=== PATIENT | male | born 1955 | race Caucasian/White ===

== ENCOUNTER 2019-11-28 21:53 | Emergency (ER) | payer MEDICARE, MEDICAID, SELFPAY ==
[2019-11-28 21:55] VITALS: BP 148/93; PULSE 81; RESP 16; TEMP 37.7; O2SAT 97; BMI 30.9
--- NOTE | 2019-11-28 23:02 | ECG_ITS ---
Test Reason : THROAT PAIN Blood Pressure : / mmHG Vent. Rate : 070 BPM Atrial Rate : 070 BPM P-R Int : 212 ms QRS Dur : 106 ms QT Int : 420 ms P-R-T Axes : 052 -03 044 degrees QTc Int : 453 ms Sinus rhythm with 1st degree A-V block with occasional Premature ventricular complexes Nonspecific ST abnormality Inferior leads Abnormal ECG When compared with ECG of 24-SEP-2017 13:38, Premature ventricular complexes are now Present Nonspecific ST abnormality Inferior leads is new Referred By: Sarah Brown Electronically Signed By:MONSE LOOMIS MD
--- NOTE | 2019-11-28 23:02 | XR_ITS ---
EXAMINATION: XR CHEST CLINICAL INFORMATION: Esophageal foreign body. Chest pain. COMPARISON: 09/24/2017 TECHNIQUE: 2 views of the chest were obtained. FINDINGS: The lungs are well expanded. There is no focal consolidation, edema, or effusion. No pneumothorax. The cardiomediastinal silhouette is within normal limits. No acute osseous abnormality. Mild degenerative changes in the spine. IMPRESSION: No acute pulmonary finding.
--- NOTE | 2019-11-28 23:10 | ED_ITS ---
HPI - Skin/Abscess/Foreign Bdy General Chief complaint: Skin/Abscess/Foreign Body Stated complaint: FB IN THROAT Time Seen by Provider: 11/28/19 23:02 Source: patient Mode of arrival: ambulatory Limitations: no limitations History of Present Illness HPI narrative: 64-year-old male presents with suspected food impaction in the Esophagus. He was eating a salad around 5:00 p.m., tried to swallow a carrot feels like the carrot got stuck in the lower portion of his esophagus. He has not been able to drink anything or swallow his secretions since that event. Has a history of esophageal food impactions as a child. does not have a history of esophageal dilation. He does report some chest pain which he believes is from the carrot that is stuck. This time he is able to speak in full sentences, denies palpitations, shortness of breath, wheezing, stridor, abdominal pain and distention, dysuria, hematuria, and edema. MD complaint: other ( Esophageal foreign body) Onset (ago): hour(s) ( 5:00 p.m. today) Tetanus up to date: unsure Location: generalized ( esophagus) Severity: moderate Severity scale (1-10): 7 Quality: aching Pain Consistency: constant Relieving factors: none Associated symptoms: denies other symptoms Treatments prior to arrival: none Related Data Home Medications Medication Instructions Recorded Confirmed pregabalin 1 - 2 cap PO BID 11/29/19 11/29/19 trazodone 1 tab PO BEDTIME 11/29/19 11/29/19 Allergies Allergy/AdvReac Type Severity Reaction Status Date / Time Penicillins [PENICILLINS] Allergy Unknown HIVES Unverified 11/04/19 14:40 fluoxetine [From PROZAC] AdvReac Unknown PT Unverified 11/04/19 14:40 REPORTED IT MADE ME SPEED UP Review of Systems Review of Systems: Constitutional: No Weight loss, No Fever, No Chills, No Night Sweats, No Fatigue, No Malaise ENT/Mouth: positive difficulty swallowing, esophageal pain, No Hearing loss, No Ear Pain, No Nasal Congestion, No Sinus Pain, No Hoarseness, No sore throat, No Rhinorrhea, Eyes: No Eye Pain, No Swelling, No Redness, No Foreign Body, No Discharge, No Vision Changes Cardiovascular: positive Chest Pain, No SOB, No Dyspnea on Exertion, No Orthopnea, No Edema, No Palpitations Respiratory: No Cough, No Sputum, No Wheezing, No Smoke Exposure, No Dyspnea Gastrointestinal: No Nausea, No Vomiting, No Diarrhea, No Constipation, No abdominal Pain, No Hematochezia, No Melena Genitourinary: no irregular bleeding, No Dysuria, No Urinary Frequency, No Hematuria, No Urinary Incontinence, No Urgency, No Flank Pain, No Urinary Flow Changes, No Hesitancy Musculoskeletal: No joint pain, No Myalgias, No Joint Swelling Skin: No Skin Lesions, No rash Neuro: No Weakness, No Numbness, No Paresthesias, No Loss of Consciousness, No D izziness, No Headache Psych: No Anxiety/Panic, No Depression, No SI/HI/AH/VH, No Social Issues, Hem e/Lymph: No Bruising, No Bleeding,No Lymphadenopathy Endocrine: No Polyuria, No Polydipsia, No Temperature Intolerance PMFSH Past Medical History Attestation statement: The following information was validated with the patient. Medical History Back pain Herniated intervertebral disc of lumbar spine Social History Social History Smoking Status: Current every day smoker Smoked in Last 30 Days: No Use of substances other than those prescribed or required for medical reasons: No Advance Directives: No Advance Directives Information Provided: No Physical Exam Vital Signs: Vital Signs: Vital Signs Temp Pulse Resp BP Pulse Ox 11/29/19 01:12 70 18 151/85 H 96 11/29/19 00:00 18 100 11/28/19 21:55 100 F 81 16 148/93 H 97 Body Mass Index 30.9 Appearance: Alert. Oriented X3. No acute distress. Eyes: Pupils equal, round and reactive to light. ENT: Pharynx normal. Neck: Normal inspection. Neck supple. CVS: Normal heart rate and rhythm. Pulses normal. Respiratory: No respiratory distress. Breath sounds normal. Abdomen: Soft and nontender. Skin: Skin warm and dry. Normal skin color. Normal skin turgor. Extremities: No lower extremity edema. No lower extremity edema. Neuro: Oriented X 3. No motor deficit. No sensory deficit. Course Course Course Narrative: patient presents with suspected foreign body, we will order chest x-ray, EKG, labs. Lung sounds are clear, there is no stridor noted to the trachea. Patient is unable to past secretions, we will give glucagon and some IV fluids. Approximately 40 minutes after glucagon, patient still unable to past secretions, states that he still feels the foreign body pressure in the bottom portion of his esophagus. We will call out to GI. Reevaluation(s) Reevaluation #1: Dr. Bunch at bedside, plan of care is to take patient to the OR for esophageal disimpaction Foreign body removal. Time: 01:03 Consultations Consultation #1: Milly Bunch Time: 00:12 MDM - Skin/Abscess/Foreign Bdy MDM Narrative Medical decision making narrative: Esophageal foreign body , esophageal stricture, Schatzki's ring Medical Records Attestation: I reviewed the patient's medical records. Lab Data Attestation: I reviewed the patient's lab results. Result diagrams: 11/28/19 23:31 11/28/19 23:31 Labs: Lab Results 11/28/19 11/28/19 11/28/19 Range/Units 23:31 23:31 23:31 WBC 10.0 (4.8-10.8) X10*3/uL RBC 4.78 (4.60-5.80) X10*6/uL Hgb 14.3 (14.0-18.0) g/dl Hct 42.6 (42-52) % MCV 89.1 (80-98) fL MCH 29.9 (27.0-33.0) pg MCHC 33.6 (31.0-36.0) g/dl RDW 13.5 (11.0-16.0) % Plt Count 243 (160-400) X10*3/uL MPV 9.8 (9.4-12.4) fL Immature Gran % (Auto) 0.4 (0.0-0.4) % Neut % (Auto) 48.0 (45-73) % Lymph % (Auto) 35.8 (20-40) % [place] % (Auto) 9.2 (2-11) % Eos % (Auto) 5.9 H (0-4) % Baso % (Auto) 0.7 (0-2) % Lymph # (Auto) 3.6 (1.2-4.9) X10*3/uL [place] # (Auto) 0.9 (0.1-1.2) X10*3/uL Eos # (Auto) 0.6 H (0.0-0.4) X10*3/uL Baso # (Auto) 0.1 (0.0-0.2) X10*3/uL Abs Immat Gran (auto) 0.04 H (0.00-0.03) X10*3/uL Absolute Neuts (auto) 4.8 (2.0-8.3) X10*3/uL Absolute Nucleated RBC 0.000 (0.0-0.012) X10*3/uL Nucleated RBC % (auto) 0.0 (0.0-0.2) /100WBC Sodium 141 (135-145) mmol/L Potassium 4.0 (3.3-5.1) mmol/l Chloride 108 (96-108) mmol/L Carbon Dioxide 26 (22-29) mmol/L Anion Gap 11 L (12-20) BUN 23 H (9-16) mg/dL Creatinine 1.08 (0.5-1.4) mg/dL Estim Creat Clear Calc 89.6 Estimated GFR > 60 Random Glucose 98 (60-115) mg/dL Calcium 9.0 (8.4-10.2) mg/dL Troponin I High Sens < 3.5 (<3.5-35.0) ng/L Imaging Data Chest x-ray: Attestation: I personally reviewed and interpreted this imaging study as follows: Radiologist's impression: EXAMINATION: XR CHEST CLINICAL INFORMATION: Esophageal foreign body. Chest pain. COMPARISON: 09/24/2017 TECHNIQUE: 2 views of the chest were obtained. FINDINGS: The lungs are well expanded. There is no focal consolidation, edema, or effusion. No pneumothorax. The cardiomediastinal silhouette is within normal limits. No acute osseous abnormality. Mild degenerative changes in the spine. IMPRESSION: No acute pulmonary finding. ECG Data Attestation: I personally reviewed and interpreted this ECG as follows: ECG interpretation date: 11/28/19 ECG interpretation time: 23:20 Prior ECG tracings: available for review Interpretation: Vent. Rate : 070 BPM Atrial Rate : 070 BPM P-R Int : 212 ms QRS Dur : 106 ms QT Int : 420 ms P-R-T Axes : 052 -03 044 degrees QTc Int : 453 ms Sinus rhythm with 1st degree A-V block with occasional Premature ventricular complexes Otherwise normal ECG When compared with ECG of 24-SEP-2017 13:38, Premature ventricular complexes are now Present Critical Care Time Critical Care Time Critical Care Time: Yes Total Critical Care Time: 35 Attestation: I have personally provided critical care time exclusive of time spent on s eparately billable procedures. Time includes review of laboratory data, radiology results, discussion with consultants, and monitoring for potential decompensation. Interventions were performed as documented. Discharge Plan Discharge Clinical Impression: Esophageal foreign body Patient Disposition: Conversion Disposition Prescriptions: No Action trazodone 50 mg tablet 1 tab PO BEDTIME RF: 0 pregabalin 150 mg capsule 1 - 2 cap PO BID RF: 0
[2019-11-28] MEDS: 0.9 % Sodium Chloride 1,000 ML 999 ML IVCONT (23:32)
[2019-11-28 23:40] LABS: Basophils Absolute Auto 0.1 X10*3/uL (0.0-0.2); Basophils Percent Auto 0.7 % (0-2); Eosinophils Absolute Auto 0.6 X10*3/uL (0.0-0.4); Eosinophils Percent Auto 5.9 % (0-4); Hematocrit 42.6 % (42-52); Hemoglobin 14.3 g/dl (14.0-18.0); Imm Gran Abs Auto 0.04 X10*3/uL (0.00-0.03); Imm Gran Pct Auto 0.4 % (0.0-0.4); Lymphocytes Absolute Auto 3.6 X10*3/uL (1.2-4.9); Lymphocytes Percent Auto 35.8 % (20-40); MANUAL DIFF FLAG NO; Mean Corpuscular HGB Conc 33.6 g/dl (31.0-36.0); Mean Corpuscular Hemoglobin 29.9 pg (27.0-33.0); Mean Corpuscular Volume 89.1 fL (80-98); Mean Platelet Volume 9.8 fL (9.4-12.4); Monocytes Absolute Auto 0.9 X10*3/uL (0.1-1.2); Monocytes Percent Auto 9.2 % (2-11); Neutrophils Absolute Auto 4.8 X10*3/uL (2.0-8.3); Platelet Count 243 X10*3/uL (160-400); Red Blood Count 4.78 X10*6/uL (4.60-5.80); Red Cell Distribution Width 13.5 % (11.0-16.0)
[2019-11-29] VITALS (7 sets, daily range): BP systolic 121–151; BP diastolic 85–96; PULSE 65–73; RESP 16–18; TEMP 36.6–36.8; O2SAT 93–100
[2019-11-29 00:07] LABS: Anion Gap 11 (12-20); Blood Urea Nitrogen 23 mg/dL (9-16); Carbon Dioxide 26 mmol/L (22-29); Chloride 108 mmol/L (96-108); Creatinine Clr Calc Pharmacy 89.6; Estimated Glomerular Filt Rate > 60; Glucose Random 98 mg/dL (60-115); Sodium 141 mmol/L (135-145)
[2019-11-29 00:12] LABS: Troponin-I High Sensitivity < 3.5 ng/L (<3.5-35.0)
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
--- NOTE | 2019-11-29 01:34 | PC.NURSE ---
ambulated to bathroom without difficulty.
--- NOTE | 2019-11-29 01:44 | MHC.SHP ---
Pre-Procedural Eval Section B Chief Complaint: FB IN THROAT Allergies: Allergies Allergy/AdvReac Type Severity Reaction Status Date / Time Penicillins [PENICILLINS] Allergy Unknown HIVES Unverified 11/04/19 14:40 fluoxetine [From PROZAC] AdvReac Unknown PT Unverified 11/04/19 14:40 REPORTED IT MADE ME SPEED UP Plan Diagnosis/Plan: Unchanged Patient has been examined and remains a candidate for the planned procedure Will proceed with EGD.
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
[2019-11-29] MEDS: Lactated Ringers 1,000 ML 999 ML IVCONT (02:08)
--- NOTE | 2019-11-29 02:53 | PM.PROC ---
Brief Operative Note Date of procedure: 11/29/19 Pre-op diagnosis: Foreign body in esophagus Post-op diagnosis: other (Piece carrot stuck about mid esophagus, able to push along with scope into the stomach.) Procedure: EGD with foreign body removal. (Raw Carrot) Anesthesia: GETA (MD Felton) Surgeon: Milly Bunch Estimated blood loss (mL): 0 Pathology: none sent Condition: stable Disposition: PACU
--- NOTE | 2019-11-29 09:26 | OP_ITS ---
SURGEON: Milly Bunch MD PROCEDURE PERFORMED: EGD with foreign body removal. ESTIMATED BLOOD LOSS: None. COMPLICATIONS: No complications. ANESTHESIA: General. ANESTHESIOLOGIST: Dr. Burton ASSISTANTS:NONE SPECIMENS: Specimens removed, none. PREOPERATIVE DIAGNOSES: A piece of carrot stuck in the mid esophagus, history of gastroesophageal reflux disorder. POSTOPERATIVE DIAGNOSES: Multiple esophageal rings, removal of foreign body caught in the midesophageal ring. THORACIC SURGEON: Dr. Bunch. FINDINGS: Video endoscope was introduced without difficulty. It was navigated into the posterior pharynx past the endotracheal tube through the hypopharyngeal region into the esophagus. Esophageal mucosa was normal. Within a short span of time, a piece of carrot was visualized-mid esophagus. Attempt to remove it tracked with the scope into the stomach. Once in the stomach, I could see carrot chunk in the fundic pool. Scope entered the body and antrum, there were no focal hemorrhagic erosive changes. Duodenal bulb and duodenum appeared endoscopically normal. Scope was withdrawn. GE junction was clear. Once we pulled back through the esophagus, you could see there was an area of narrowing at 30 cm. I could then see an esophageal ring at the level of 23cm. Mild inflammatory erythema noted due to the stasis of the foreign body in this area since 5 p.m. last night. PLAN AND CURRENT RECOMMENDATIONS: The patient to follow up with Dr. Grayson, who has seen him previously. He will probably benefit from barium swallow with barium tablet to further assess the levels of the esophageal rings. Repeat endoscopy with intent to attempt dilation of the area was found to be still persistently narrowed. GRAFT OR IMPLANTS: No grafts or implants. CONDITION: Postprocedure, stable. Milly Bunch MD MEN/MODL / [id number] MTDChi
== END 2019-11-29 02:20 | disposition home or self-care (01) ==
PROVIDERS: Internal Medicine Gastroenterology; Nurse Practitioner Family; Emergency Provider Emergency Medicine; PCP Family Medicine
PROC: 0DJ08ZZ Inspection of Upper Intestinal Tract, Via Natural or Artificial Opening Endoscopic (ICD-10-PCS; CPT 43235; principal; 2019-11-29 02:00)
DX: T18.128A Food in esophagus causing other injury, initial encounter (principal); X58.XXXA Exposure to other specified factors, initial encounter; R07.9 Chest pain, unspecified; K22.2 Esophageal obstruction; K21.9 Gastro-esophageal reflux disease without esophagitis; F17.210 Nicotine dependence, cigarettes, uncomplicated
CPT/HCPCS: 43247; 36415; 71046; 80048; 84484; 85025; 93005; 96361; 96374; 99283; 99285; 99291; J0330; J1610; J3010

== ENCOUNTER 2019-12-10 09:12 | Outpatient (REF) | payer MEDICARE, MEDICAID, SELFPAY | END 2019-12-10 09:13 | disposition home or self-care (01) | LOC: HO.SH 09:12 | PROVIDERS: Visit Provider Family Medicine | DX: Z13.89 Encounter for screening for other disorder (principal) ==

== ENCOUNTER 2019-12-15 08:23 | Outpatient (REF) | payer MEDICARE, MEDICAID, SELFPAY | END 2019-12-15 08:24 | disposition home or self-care (01) | LOC: HO.SH 08:23 | PROVIDERS: Visit Provider Family Medicine | DX: H90.3 Sensorineural hearing loss, bilateral (principal) | CPT/HCPCS: 92557; 92567; 92593; 99499 ==

== ENCOUNTER 2020-04-17 11:41 | Outpatient (REF) | payer MEDICARE, MEDICAID, SELFPAY | END 2020-04-17 11:42 | disposition home or self-care (01) | LOC: HO.HAP 11:41 | PROVIDERS: Visit Provider Family Medicine | DX: Z46.1 Encounter for fitting and adjustment of hearing aid (principal) | CPT/HCPCS: V5266 ==

== ENCOUNTER 2020-04-20 10:44 | Outpatient (REF) | payer MEDICARE, MEDICAID, SELFPAY | END 2020-04-20 10:45 | disposition home or self-care (01) | LOC: HO.HAP 10:44 | PROVIDERS: Visit Provider Family Medicine | DX: Z46.1 Encounter for fitting and adjustment of hearing aid (principal); H90.3 Sensorineural hearing loss, bilateral | CPT/HCPCS: V5275 ==

== ENCOUNTER 2020-05-11 08:06 | Outpatient (REF) | payer MEDICARE, MEDICAID, SELFPAY | END 2020-05-11 08:07 | disposition home or self-care (01) | LOC: HO.HAP 08:06 | PROVIDERS: Visit Provider Family Medicine | DX: Z46.1 Encounter for fitting and adjustment of hearing aid (principal); H90.3 Sensorineural hearing loss, bilateral | CPT/HCPCS: V5264 ==

== ENCOUNTER 2020-06-05 07:38 | Outpatient (REF) | payer MEDICARE, MEDICAID, SELFPAY ==
[2020-06-05 08:21] LABS: COVID-19 Test Negative (Negative)
== END 2020-06-05 07:39 | disposition home or self-care (01) ==
LOC: HO.LAB 07:38
PROVIDERS: Visit Provider Internal Medicine
DX: Z20.822 Contact with and (suspected) exposure to COVID-19 (principal)
CPT/HCPCS: 36415; 87635; C9803

== ENCOUNTER 2020-06-15 11:26 | Outpatient (REF) | payer MEDICARE, MEDICAID, SELFPAY ==
[2020-06-15 12:00] LABS: COVID-19 Test Negative (Negative)
== END 2020-06-15 11:27 | disposition home or self-care (01) ==
LOC: HO.LAB 11:26
PROVIDERS: Visit Provider Internal Medicine
DX: Z20.822 Contact with and (suspected) exposure to COVID-19 (principal)
CPT/HCPCS: 36415; 87635; C9803

== ENCOUNTER 2020-06-22 09:21 | Outpatient (REF) | payer MEDICARE, MEDICAID, SELFPAY ==
[2020-06-22 11:35] LABS: Cholesterol 244 mg/dL; HDL Cholesterol 45 mg/dL; LDL Cholesterol Calculated 165 mg/dl; Triglycerides 171 mg/dL
[2020-06-23 04:57] LABS: LDL Cholesterol Direct 175 mg/dL (<100)
== END 2020-06-22 09:22 | disposition home or self-care (01) ==
LOC: HO.WFDLDS 09:21
PROVIDERS: Visit Provider Family Medicine
DX: Z00.00 Encounter for general adult medical examination without abnormal findings (principal); E78.5 Hyperlipidemia, unspecified
CPT/HCPCS: 36415; 80061; 83721

== ENCOUNTER 2020-08-02 11:32 | Day surgery (SDC) | payer MEDICARE, MEDICAID, SELFPAY ==
[2020-07-27 15:26] VITALS: BMI 31.1
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
[2020-08-02 12:04] VITALS: BP 139/97; PULSE 77; RESP 16; TEMP 36.4; O2SAT 97
[2020-08-02] MEDS: Lactated Ringers 1,000 ML 100 ML IVCONT (12:12)
--- NOTE | 2020-08-02 13:04 | MHC.SHP ---
Pre-Procedural Eval Section A The patient is an INPATIENT: No Changes since office visit: No Cold of Flu in the past 2 weeks, No New Medical Problems, No Changes in Medication and No Patient answered all questions The History & Physical has been completed within 30 days and I have reviewed it.: Yes Section B Chief Complaint: screening Allergies: Allergies Allergy/AdvReac Type Severity Reaction Status Date / Time Penicillins [PENICILLINS] Allergy Unknown HIVES Verified 07/27/20 15:19 fluoxetine [From PROZAC] AdvReac Unknown PT Verified 07/27/20 15:19 REPORTED IT MADE ME SPEED UP Plan I have reviewed the history and physical and performed a pertinent physical examination on my patient. No changes have occurred unless specified.
[2020-08-02 13:39] VITALS: BP 129/86; PULSE 73; RESP 16; TEMP 36.3; O2SAT 94
--- NOTE | 2020-08-02 13:39 | PM.OP ---
Brief Operative Note Date of Service: 08/02/20 Pre-op diagnosis: screening Post-op diagnosis: same (colon polyp) Surgeon: Rafiq Grayson Anesthesia: MAC Was an Payloader Machine Operator used for this Procedure?: No Estimated blood loss (mL): 0 Pathology: other (polyp at 70 cm) Condition: stable Disposition: PACU
[2020-08-02 13:54] VITALS: BP 163/97; PULSE 68; RESP 16; O2SAT 98
[2020-08-02 14:06] VITALS: BP 181/99; PULSE 66; RESP 16; TEMP 36.3; O2SAT 97
[2020-08-02] MEDS: Acetaminophen 325 MG TABLET 650 MG PO (14:10)
--- NOTE | 2020-08-04 10:56 | OP_ITS ---
SURGEON: Rafiq Grayson MD INDICATIONS: Colon cancer screening and family history of colon cancer. PREOPERATIVE DIAGNOSIS: POSTOPERATIVE DIAGNOSIS: PROCEDURE PERFORMED: Colonoscopy to the terminal ileum with snare polypectomy. ESTIMATED BLOOD LOSS: COMPLICATIONS: ANESTHESIA: ASSISTANTS: SPECIMENS: MEDICATIONS: Monitored anesthesia care. DESCRIPTION OF PROCEDURE: History and physical performed. The risks and benefits of the procedure were explained to the patient. Informed consent was obtained. The patient was placed in left lateral decubitus position. A digital rectal exam was performed and was found to be normal. The Olympus pediatric video colonoscope was introduced into the rectum and advanced to the cecum without difficulty. The cecum was identified by transillumination, palpation, and identification of ileocecal valve. Examination was performed. The scope was removed. He tolerated the procedure well and was transferred to recovery area in stable condition. FINDINGS: The terminal ileum was normal. The visualized colonic mucosa was within normal limits without evidence of masses, ulcers, or tumors. At 70 cm from the anal verge, was an approximately 8 to 10 mm polyp, which was removed with a snare and recovered via suction. No other polyps were identified. There was moderate sigmoid diverticulosis. Retroflexed examination showed [id number] internal hemorrhoids. IMPRESSION: Colon polyp. RECOMMENDATION: Follow up with biopsy results. MD KAMERON Heaton/MORELIAL / [id number]
== END 2020-08-02 14:41 | disposition home or self-care (01) ==
PROVIDERS: PCP Family Medicine; Visit Provider Internal Medicine Gastroenterology
PROC: 0DJD8ZZ Inspection of Lower Intestinal Tract, Via Natural or Artificial Opening Endoscopic (ICD-10-PCS; CPT 45378; principal; 2020-08-02 13:00)
DX: Z12.11 Encounter for screening for malignant neoplasm of colon (principal); Z80.0 Family history of malignant neoplasm of digestive organs; D12.4 Benign neoplasm of descending colon; K57.30 Diverticulosis of large intestine without perforation or abscess without bleeding; K64.8 Other hemorrhoids; G47.33 Obstructive sleep apnea (adult) (pediatric); F31.9 Bipolar disorder, unspecified; F42.9 Obsessive-compulsive disorder, unspecified; Z79.899 Other long term (current) drug therapy; Z88.0 Allergy status to penicillin; F17.210 Nicotine dependence, cigarettes, uncomplicated
CPT/HCPCS: 45385; 88305

== ENCOUNTER 2020-09-21 09:16 | Outpatient (REF) | payer MEDICARE, MEDICAID, SELFPAY ==
--- NOTE | ~2020-09-21 | XR_ITS ---
EXAMINATION: XR SACRUM AND COCCYX CLINICAL INFORMATION: Sacrococcygeal disorder is. COMPARISON: None TECHNIQUE: 2 views of the sacrum and 2 views of the coccyx were obtained. FINDINGS: There is normal symmetry of bilateral SI joints. No abnormality seen involving the sacrum. The soft tissues are normal. XR/XR sacrum coccyx min 2V IMPRESSION: Unremarkable bilateral SI joint exam. No fracture involving sacrum.
--- NOTE | ~2020-09-21 | XR_ITS ---
EXAMINATION: XR LUMBOSACRAL SPINE CLINICAL INFORMATION: Low back pain. COMPARISON: None TECHNIQUE: Three views of the lumbosacral spine. FINDINGS: There is normal lumbar lordosis. The vertebral heights and alignment is normal. There is mild loss of L5-S1 disc height. There is a disc heights are normal. No visible acute fracture, dislocation or lytic process seen. There is right L5-S1 facet joint arthropathy. No lytic or sclerotic process seen. XR/XR lumbar spine 2-3V IMPRESSION: Right L5-S1 facet joint arthropathy. No visible acute fracture or dislocation seen.
== END 2020-09-21 09:17 | disposition home or self-care (01) ==
LOC: HO.XRAY 09:16
PROVIDERS: PCP Physician Assistant; Visit Provider Physician Assistant
DX: M51.26 Other intervertebral disc displacement, lumbar region (principal); M53.3 Sacrococcygeal disorders, not elsewhere classified; G89.29 Other chronic pain
CPT/HCPCS: 72100; 72220

== ENCOUNTER 2020-11-03 06:44 | Outpatient (REF) | payer MEDICARE, MEDICAID, SELFPAY ==
[2020-11-03 07:39] LABS: Hematocrit 41.3 % (42-52); Hemoglobin 13.8 g/dl (14.0-18.0); Mean Corpuscular HGB Conc 33.4 g/dl (31.0-36.0); Mean Corpuscular Hemoglobin 30.5 pg (27.0-33.0); Mean Corpuscular Volume 91.4 fL (80-98); Platelet Count 251 X10*3/uL (160-400); Red Blood Count 4.52 X10*6/uL (4.60-5.80); Red Cell Distribution Width 13.8 % (11.0-16.0); White Blood Count 8.5 X10*3/uL (4.8-10.8)
[2020-11-03 08:13] LABS: Alanine Aminotransferase 26 U/L (0-40); Albumin Level 4.2 g/dL (3.5-5.0); Alkaline Phosphatase 88 U/L (39-117); Anion Gap 11 (12-20); Aspartate Amino Transferase 15 U/L (5-37); Bilirubin Total 0.6 mg/dL (0.0-1.0); Blood Urea Nitrogen 22 mg/dL (9-16); Calcium 8.8 mg/dL (8.4-10.2); Carbon Dioxide 24 mmol/L (22-29); Chloride 110 mmol/L (96-108); Cholesterol 189 mg/dL; Estimated Glomerular Filt Rate > 60; Glucose Fasting 105 mg/dL (60-99); HDL Cholesterol 47 mg/dL; LDL Cholesterol Calculated 110 mg/dl; Potassium 4.2 mmol/L (3.3-5.1); Sodium 141 mmol/L (135-145); Total Protein 6.6 g/dL (6.5-8.0); Triglycerides 162 mg/dL
[2020-11-03 08:14] LABS: Estimated Average Glucose 111 mg/dL; Hemoglobin A1c % 5.5 %
[2020-11-03 08:35] LABS: Prostate Specific Antigen Scr 1.81 ng/mL (<0.05-4.0); TSH reflex Free T4 2.41 uIU/mL (0.32-4.0)
[2020-11-03 09:36] LABS: Creatinine Urine 173.74 mg/dL; Microalbum/Creatinine Ratio Ur 4.6 ug/mg cr
== END 2020-11-03 06:45 | disposition home or self-care (01) ==
LOC: HO.LAB 06:44
PROVIDERS: PCP Physician Assistant; Visit Provider Physician Assistant
DX: Z12.5 Encounter for screening for malignant neoplasm of prostate (principal); I10 Essential (primary) hypertension
CPT/HCPCS: 36415; 80053; 80061; 82043; 83036; 84153; 84443; 85027

== ENCOUNTER 2020-12-18 14:30 | Outpatient (REF) | payer MEDICARE, MEDICAID, SELFPAY | END 2020-12-18 14:31 | disposition home or self-care (01) | LOC: HO.HAP 14:30 | PROVIDERS: Visit Provider Physician Assistant | DX: Z46.1 Encounter for fitting and adjustment of hearing aid (principal); H90.3 Sensorineural hearing loss, bilateral | CPT/HCPCS: V5266 ==

== ENCOUNTER 2021-05-25 22:08 | Emergency (ER) | payer MEDICARE, MEDICAID, SELFPAY ==
--- NOTE | ~2021-05-25 | XR_ITS ---
EXAMINATION: XR CHEST CLINICAL INFORMATION: Right-sided chest pain COMPARISON: 11/28/2019 TECHNIQUE: Frontal view of the chest was obtained. FINDINGS: Lung volumes are symmetric. There are mild streaky opacities towards the lung bases. No evidence of pneumothorax, significant pleural effusion, or pulmonary edema. The cardiomediastinal contour is unremarkable. No acute osseous findings are seen. XR/XR chest 1V IMPRESSION: Mild streaky bibasilar opacities more suggestive of atelectasis.
--- NOTE | 2021-05-25 22:33 | ECG_ITS ---
Test Reason : CHEST PAIN Blood Pressure : / mmHG Vent. Rate : 070 BPM Atrial Rate : 070 BPM P-R Int : 206 ms QRS Dur : 100 ms QT Int : 384 ms P-R-T Axes : 023 -12 015 degrees QTc Int : 414 ms Normal sinus rhythm Normal ECG When compared with ECG of 28-NOV-2019 23:20, Premature ventricular complexes are no longer Present Nonspecific T wave abnormality now evident in Inferior leads Referred By: Generic ED Physician Electronically Signed By:LUCIA BURNETT MD
[2021-05-25 22:34] VITALS: BP 126/96; PULSE 84; RESP 22; TEMP 36.9; O2SAT 97; BMI 29.0
[2021-05-25 23:42] LABS: MANUAL DIFF FLAG NO
[2021-05-25 23:43] LABS: Basophils Percent Auto 0.2 % (0-2); Eosinophils Absolute Auto 0.2 X10*3/uL (0.0-0.4); Eosinophils Percent Auto 1.3 % (0-4); Hematocrit 39.4 % (42.0-52.0); Hemoglobin 13.1 g/dl (14.0-18.0); Imm Gran Abs Auto 0.04 X10*3/uL (0.00-0.03); Imm Gran Pct Auto 0.3 % (0.0-0.4); Lymphocytes Absolute Auto 2.1 X10*3/uL (1.2-4.9); Lymphocytes Percent Auto 17.7 % (20-40); Mean Corpuscular HGB Conc 33.2 g/dl (31.0-36.0); Mean Corpuscular Hemoglobin 29.5 pg (27.0-33.0); Mean Corpuscular Volume 88.7 fL (80.0-98.0); Mean Platelet Volume 9.5 fL (9.4-12.4); Monocytes Absolute Auto 1.1 X10*3/uL (0.1-1.2); Monocytes Percent Auto 8.9 % (2-11); Neutrophils Absolute Auto 8.6 x10*3/uL (2.0-8.3); Neutrophils Percent Auto 71.6 % (45-73); Platelet Count 250 X10*3/uL (160-400); Red Blood Count 4.44 X10*6/uL (4.60-5.80); Red Cell Distribution Width 13.2 % (11.0-16.0); White Blood Count 12.1 X10*3/uL (4.8-10.8)
[2021-05-25 23:58] LABS: Anion Gap 13 (12-20); Blood Urea Nitrogen 17 mg/dL (9-16); Calcium 8.8 mg/dL (8.4-10.2); Carbon Dioxide 26 mmol/L (22-29); Chloride 102 mmol/L (96-108); Creatinine Clr Calc Pharmacy 93.1; Estimated Glomerular Filt Rate > 60; Glucose Random 101 mg/dL (60-115); Potassium 4.2 mmol/L (3.3-5.1); Sodium 137 mmol/L (135-145)
[2021-05-26 00:04] LABS: Troponin-I High Sensitivity 6.7 ng/L (<3.5-35.0)
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
== END 2021-05-26 01:56 | disposition home or self-care (01) ==
LOC: HO.ED 05-26 01:44
PROVIDERS: Emergency Provider Emergency Medicine
DX: R07.89 Other chest pain (principal); I10 Essential (primary) hypertension; E78.5 Hyperlipidemia, unspecified; F17.200 Nicotine dependence, unspecified, uncomplicated; F11.20 Opioid dependence, uncomplicated; Z79.02 Long term (current) use of antithrombotics/antiplatelets; Z79.899 Other long term (current) drug therapy
CPT/HCPCS: 36415; 71045; 80048; 84484; 85025; 93005; 99283

== ENCOUNTER 2021-09-17 13:18 | Outpatient (REF) | payer MEDICARE, MEDICAID, SELFPAY | END 2021-09-17 13:19 | disposition home or self-care (01) | LOC: HO.HAP 13:18 | PROVIDERS: Visit Provider Family Medicine | DX: Z46.1 Encounter for fitting and adjustment of hearing aid (principal); H90.3 Sensorineural hearing loss, bilateral | CPT/HCPCS: V5266 ==

== ENCOUNTER 2021-10-19 09:02 | Outpatient (REF) | payer MEDICARE, MEDICAID, SELFPAY ==
--- NOTE | 2021-10-19 10:20 | MHC.AU.HFU ---
Hearing Instrument Follow-Up- Binaural Date of Visit: 10/19/21 Flower Stripper Used: Not Applicable Right Ear: Almond Sorter: Phonak Model: 2017 GiftLauncher B50-SP 2012 Bolero Q70-SP Serial Number: Nereyda Du0- [id number] Nreeyda Q70- [id number] [facility]air [facility] Battery Size: 13 [id number] Type of Mold: Microsonic skeleton molds Dispensed By: [facility] Date of Fitting: [place] 2771007/07/2017 Left Ear: Almond Sorter: Phonak Model: 2017 Cintricero B50-SP 2012 Bolero Q70-SP Serial Number: Nereyda Du0- [id number] Nereyda Q70- [id number] Repair [facility]2020 Battery Size: 13 TubinT Type of Mold: Microsonic skeleton molds Type of Wax Guard: Dispensed By: [facility] Date of Fitting: [place] 2771007/07/2017 Follow-Up Summary: Both Bolero Q aids dropped off reportedly not working. Listening check confirmed. The battery compartment and contacts are completely corroded. Sending both in for repair out of warranty. Recommendations:When repairs received, filler picker last settings in [facility] for the Bolero Q aids Signature:Provider: Claritza Wasserman, [facility]
== END 2021-10-19 09:03 | disposition home or self-care (01) ==
LOC: HO.HAP 09:02
PROVIDERS: Visit Provider Physician Assistant
DX: Z13.89 Encounter for screening for other disorder (principal)

== ENCOUNTER 2021-12-20 09:41 | Outpatient (REF) | payer MEDICARE, MEDICAID, SELFPAY | END 2021-12-20 09:42 | disposition home or self-care (01) | LOC: HO.HAP 09:41 | PROVIDERS: Visit Provider Nurse Practitioner Family | DX: Z46.1 Encounter for fitting and adjustment of hearing aid (principal); H90.3 Sensorineural hearing loss, bilateral | CPT/HCPCS: V5014 ==

== ENCOUNTER 2022-01-03 08:52 | Outpatient (REF) | payer MEDICARE, MEDICAID, SELFPAY | END 2022-01-03 08:53 | disposition home or self-care (01) | LOC: HO.HAP 08:52 | PROVIDERS: Visit Provider Physician Assistant | DX: Z46.1 Encounter for fitting and adjustment of hearing aid (principal); H90.3 Sensorineural hearing loss, bilateral | CPT/HCPCS: 92593; V5266; V5275 ==

== ENCOUNTER → 2022-02-25 13:10 | Outpatient (BNVA) | payer MEDICARE, MEDICAID, SELFPAY | PROVIDERS: PCP Physician Assistant; Referring Provider Nurse Practitioner Family; Visit Provider Surgery | DX: L98.9 Disorder of the skin and subcutaneous tissue, unspecified (principal) | CPT/HCPCS: 99202 ==

== ENCOUNTER 2022-03-06 12:28 | Outpatient (REF) | payer MEDICARE, MEDICAID, SELFPAY | END 2022-03-06 12:29 | disposition home or self-care (01) | LOC: HO.LNP 12:28 | PROVIDERS: PCP Physician Assistant; Referring Provider Physician Assistant; Visit Provider Surgery | DX: C44.622 Squamous cell carcinoma of skin of right upper limb, including shoulder (principal) | CPT/HCPCS: 11402; 11602; 88305 ==

== ENCOUNTER 2022-03-08 09:44 | Outpatient (REF) | payer MEDICARE, MEDICAID, SELFPAY ==
--- NOTE | 2022-03-08 10:16 | MHC.AU.HA3 ---
Hearing Instrument Follow-Up- Binaural Date of Visit: 03/08/22 Right Ear: Make, Model, Color, Serial Number: Isaiah Dawn B50-SP SN: [id number] Color: [place] Phonak Bolero Q70 Original SN: [id number], Replaced by SN: [id number] on 10/2021 Quencher Operator Repair Warranty: Bolero B50-SP: 09/13/2020 Bolero Q70 SP: 05/15/2022 Battery Size: 13 Earmold/Dome/CShell/SlimTip:Microsonic skeleton molds Dispensed By: [facility] Date of Fitting: Aliyaero B50-SP: 07/07/2017 Bolero Q70 SP: 06/23/2012 Left Ear: Make, Model, Color, Serial Number: Isaiah Dawn B50-SP SN: [id number] Color: [place] Phonak Bolero Q70 Original SN: [id number], Replaced by [id number] on 10/2021 Quencher Operator Repair Warranty: Bolero B50-SP: 09/13/2020 Bolero Q70 SP: 05/15/2022 Earmold/Dome/CShell/SlimTip: Microsonic skeleton molds Dispensed By: [facility] Date of Fitting: Nereyda B50-SP: 07/07/2017 Bolero Q70 SP: 06/23/2012 Follow-Up Summary: Fit new skeleton ear molds. Wilver reported that the molds were comfortable and no feedback noted in office. Wilver is currently wearing his old Bolero Q70 hearing aids. He reported that he notices significant improvement in sound quality and volume compared to his new Bolero B50 hearing aids. He reportedly notices the difference in the processing between the 70 and 50 technology levels. He keeps his Bolero B50 hearing aids as back up. Wilver now has his old earmolds to keep as back up as well. Recommendations: Hearing instrument maintenance in 6 months, or sooner if needed. Diagnosis Code(s): Primary Diagnosis: H90.3 Bilateral Sensorineural Hearing Loss Signature: Provider: Lynn Griffin, [facility]
== END 2022-03-08 09:45 | disposition home or self-care (01) ==
LOC: HO.HAP 09:44
PROVIDERS: Visit Provider Physician Assistant
DX: Z46.1 Encounter for fitting and adjustment of hearing aid (principal); H90.3 Sensorineural hearing loss, bilateral
CPT/HCPCS: V5264

== ENCOUNTER → 2022-03-21 13:10 | Outpatient (BNVA) | payer MEDICARE, MEDICAID, SELFPAY | PROVIDERS: PCP Physician Assistant; Visit Provider Physician Assistant Surgical | DX: C44.622 Squamous cell carcinoma of skin of right upper limb, including shoulder (principal) | CPT/HCPCS: 99212 ==

== ENCOUNTER 2022-04-12 08:52 | Outpatient (REF) | payer MEDICARE, MEDICAID, SELFPAY ==
[2022-04-12 09:20] LABS: Hematocrit 43.1 % (42.0-52.0); Hemoglobin 14.1 g/dl (14.0-18.0); Mean Corpuscular HGB Conc 32.7 g/dl (31.0-36.0); Mean Corpuscular Hemoglobin 29.7 pg (27.0-33.0); Mean Corpuscular Volume 90.9 fL (80.0-98.0); Mean Platelet Volume 9.5 fL (9.4-12.4); Platelet Count 254 X10*3/uL (160-400); Red Blood Count 4.74 X10*6/uL (4.60-5.80); Red Cell Distribution Width 13.9 % (11.0-16.0); White Blood Count 12.9 X10*3/uL (4.8-10.8)
[2022-04-12 09:54] LABS: Alanine Aminotransferase 31 U/L (0-40); Alkaline Phosphatase 102 U/L (39-117); Anion Gap 12 (12-20); Aspartate Amino Transferase 17 U/L (5-37); Bilirubin Total 0.4 mg/dL (0.0-1.0); Blood Urea Nitrogen 17 mg/dL (9-16); Carbon Dioxide 26 mmol/L (22-29); Chloride 106 mmol/L (96-108); Cholesterol 245 mg/dL; Estimated Glomerular Filt Rate > 60; Glucose Random 103 mg/dL (60-115); HDL Cholesterol 55 mg/dL; LDL Cholesterol Calculated 163 mg/dl; Potassium 4.4 mmol/L (3.3-5.1); Sodium 140 mmol/L (135-145); Total Protein 6.5 g/dL (6.5-8.0); Triglycerides 135 mg/dL
[2022-04-12 10:15] LABS: PSA,Total (Free>4and<10) 0.77 ng/mL (0.00-4.00); TSH reflex Free T4 0.86 uIU/mL (0.32-4.0)
== END 2022-04-12 08:53 | disposition home or self-care (01) ==
LOC: HO.LAB 08:52
PROVIDERS: PCP Physician Assistant; Visit Provider Nurse Practitioner Family
DX: Z13.0 Encounter for screening for diseases of the blood and blood-forming organs and certain disorders involving the immune mechanism (principal); Z12.39 Encounter for other screening for malignant neoplasm of breast; Z12.5 Encounter for screening for malignant neoplasm of prostate; Z13.220 Encounter for screening for lipoid disorders; Z13.1 Encounter for screening for diabetes mellitus; Z79.899 Other long term (current) drug therapy; Z79.52 Long term (current) use of systemic steroids
CPT/HCPCS: 36415; 80053; 80061; 84153; 84443; 85027

== ENCOUNTER 2022-05-28 13:16 | Outpatient (REF) | payer MEDICARE, MEDICAID, SELFPAY | END 2022-05-28 13:17 | disposition home or self-care (01) | LOC: HO.HAP 13:16 | PROVIDERS: Visit Provider Physician Assistant | DX: H90.3 Sensorineural hearing loss, bilateral (principal); Z46.1 Encounter for fitting and adjustment of hearing aid | CPT/HCPCS: V5266 ==

== ENCOUNTER 2022-10-23 02:00 | Day surgery (SDC) | payer MEDICARE, MEDICAID, SELFPAY ==
[2022-10-23] VITALS (12 sets, daily range): BP systolic 106–161; BP diastolic 56–97; PULSE 55–82; RESP 12–18; TEMP 36.2–36.8; O2SAT 96–98; BMI 31.7
--- NOTE | 2022-10-23 08:15 | ECG_ITS ---
Test Reason : DRUG MONITORING Blood Pressure : / mmHG Vent. Rate : 060 BPM Atrial Rate : 060 BPM P-R Int : 224 ms QRS Dur : 106 ms QT Int : 442 ms P-R-T Axes : 069 -04 040 degrees QTc Int : 442 ms Sinus rhythm with 1st degree A-V block with occasional Premature ventricular complexes Nonspecific T wave abnormality Abnormal ECG When compared with ECG of 25-MAY-2021 23:23, Premature ventricular complexes are now Present Referred By: Janelle Villagomez Electronically Signed By:MICHELLE CALL
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
[2022-10-23] MEDS: Nitroglycerin 0.4 MG TAB.SUBL SUBLINGUAL ×2 (08:40→08:52)
[2022-10-23 08:42] LABS: MANUAL DIFF FLAG NO
[2022-10-23] MEDS: 0.9 % Sodium Chloride 1,000 ML 999 ML IV (08:42)
[2022-10-23 08:43] LABS: Basophils Absolute Auto 0.1 X10*3/uL (0.0-0.2); Basophils Percent Auto 0.7 % (0-2); Eosinophils Absolute Auto 0.4 X10*3/uL (0.0-0.4); Eosinophils Percent Auto 4.4 % (0-4); Hematocrit 43.4 % (42.0-52.0); Hemoglobin 14.4 g/dl (14.0-18.0); Imm Gran Abs Auto 0.03 X10*3/uL (0.00-0.03); Imm Gran Pct Auto 0.4 % (0.0-0.4); Lymphocytes Absolute Auto 2.3 X10*3/uL (1.2-4.9); Lymphocytes Percent Auto 26.7 % (20-40); Mean Corpuscular HGB Conc 33.2 g/dl (31.0-36.0); Mean Corpuscular Hemoglobin 29.6 pg (27.0-33.0); Mean Corpuscular Volume 89.3 fL (80.0-98.0); Mean Platelet Volume 9.3 fL (9.4-12.4); Monocytes Absolute Auto 0.8 X10*3/uL (0.1-1.2); Monocytes Percent Auto 9.2 % (2-11); Neutrophils Percent Auto 58.6 % (45-73); Platelet Count 262 X10*3/uL (160-400); Red Blood Count 4.86 X10*6/uL (4.60-5.80); Red Cell Distribution Width 13.1 % (11.0-16.0); White Blood Count 8.5 X10*3/uL (4.8-10.8)
--- NOTE | 2022-10-23 08:44 | PC.NURSE ---
patient states he feels as if he has meat stuck in his throat, patient is speaking in full sentences, managing own secretions. awake and alert
--- NOTE | 2022-10-23 08:51 | PC.NURSE ---
verbal order to give second dose of nitro, patient sitting up right in bed, speaking in full sentances, VSS
[2022-10-23 08:58] LABS: Anion Gap 13 (12-20); Blood Urea Nitrogen 22 mg/dL (9-16); Calcium 9.5 mg/dL (8.4-10.2); Carbon Dioxide 27 mmol/L (22-29); Chloride 107 mmol/L (96-108); Creatinine Clr Calc Pharmacy 106.8; Estimated Glomerular Filt Rate > 60; Glucose Random 100 mg/dL (60-115); Sodium 143 mmol/L (135-145)
[2022-10-23 09:02] LABS: INTERNATIONAL NORM RATIO 0.9 (0.9-1.1); Prothrombin Time 11.5 SEC (11.1-13.3)
[2022-10-23] MEDS: glucagon HCL 1 MG VIAL IVPUSH (10:15)
--- NOTE | 2022-10-23 10:22 | MHC.EDTECH ---
Sent message to Dr. Valdes office for consult. Dr. Valdes is doing procedures
--- NOTE | 2022-10-23 10:26 | PC.NURSE ---
ALERT, NO SOB, GLUCAGON GIVEN AND PT ATTEMPTED TO DRINK NICOLE ASHANTI BUT ALL THE FLUID CAME BACK UP. AWARE
--- NOTE | 2022-10-23 12:42 | P.EN_ITS ---
Event Note Date of Service: 10/23/22 Event Note: GI Consult-Full note dictated-Hx via patient, EMR, and ER staff Imp: 67 yo male with a previous history of esophageal food impactions who describes at least 1 year of progressive dysphagia. He developed an acute esophageal obstruction to meat last evening that has persisted despite medical therapy. He denies CP/SOB. He has a history of IVDA with abstinence x 8 months and currently on Methadone. He denies EtOH. He does smoke. He denies any significant surgeries nor medical issues such as [place], DM, or CVA. Rec: EGD today with Dr. Grayson. Full consent obtained from him for this, including risks of bleeding and perforation. I told him that he may need a F/U E GD for dilation at some point as well. He is comfortable with this plan. Thanks Time Spent With Patient Time: Total time managing care of this patient today ____ minutes.
--- NOTE | 2022-10-23 12:53 | MHC.SHP ---
Pre-Procedural Eval Section A Date of Service: 10/23/22 The patient is an INPATIENT: No The History & Physical has been completed within 30 days and I have reviewed it.: Yes Section B Chief Complaint: food stuck in throat Allergies: Allergies Allergy/AdvReac Type Severity Reaction Status Date / Time Penicillins [PENICILLINS] Allergy Unknown HIVES Verified 04/29/22 11:25 fluoxetine [From PROZAC] AdvReac Unknown PT Verified 04/29/22 11:25 REPORTED IT MADE ME SPEED UP Plan I have reviewed the history and physical and performed a pertinent physical examination on my patient. No changes have occurred unless specified. Time Spent With Patient Time: Total time managing care of this patient today ____ minutes.
[2022-10-23] MEDS: 0.9 % Sodium Chloride 1,000 ML 100 ML IVCONT (13:20)
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
--- NOTE | 2022-10-23 16:48 | P.BOP_ITS ---
Brief Operative Note Date of Service: 10/23/22 Pre-op diagnosis: fb esophagus dysphagia Post-op diagnosis: same Procedure: EGD Surgeon: Rafiq Grayson Anesthesia: MAC Was an Income Tax Manager used for this Procedure?: No Estimated blood loss (mL): 0 Pathology: none sent Condition: stable Disposition: PACU
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
--- NOTE | 2022-10-24 02:38 | OP_ITS ---
DATE OF SERVICE: 10/23/2022 SURGEON: Rafiq Grayson MD INDICATIONS: Foreign body in esophagus and dysphagia. PREOPERATIVE DIAGNOSIS: POSTOPERATIVE DIAGNOSIS: PROCEDURE PERFORMED: Upper endoscopy with removal of foreign body. ESTIMATED BLOOD LOSS: COMPLICATIONS: ANESTHESIA: Monitored anesthesia care. ASSISTANTS: SPECIMENS: DESCRIPTION OF PROCEDURE: History and physical performed. The risks and benefits of the procedure were explained to the patient. Informed consent was obtained. The patient was placed in the left lateral decubitus position. The Olympus video gastroscope was introduced into the esophagus, stomach, and duodenum. Examination was performed. The scope was removed. He tolerated the procedure well and was taken to recovery room in stable condition. FINDINGS: Esophagus: There was a nonobstructive ring at 22 cm from the incisors. The scope passed below this until 30 cm where there was a large food impaction. Initial attempts to push this through into the stomach were unsuccessful, and the impaction was partially removed and broken up with a tripod and rat-tooth forceps to the point where it was able to be pushed into the stomach. There was associated esophagitis from 30 to 35 cm without a definite stricture. No changes of Gold esophagus were identified endoscopically. Stomach: The stomach showed no evidence of masses, ulcers, or polyps. Duodenum: The bulb and 2nd portion were normal. IMPRESSION: 1. Foreign body esophagus, resolved. 2. Esophagitis. 3. Esophageal ring. RECOMMENDATION: 1. Omeprazole 20 mg daily. 2. Barium swallow in 4-6 weeks. 3. Repeat endoscopy in 8-12 weeks with possible dilation. MD KAMERON Heaton/MODL / [id number]
== END 2022-10-23 17:57 | disposition home or self-care (01) ==
LOC: HO.ED 10:19 → HO.SSS 13:09
PROVIDERS: Internal Medicine Gastroenterology; Emergency Provider Emergency Medicine; PCP Physician Assistant; Visit Provider Internal Medicine
PROC: 0DJ08ZZ Inspection of Upper Intestinal Tract, Via Natural or Artificial Opening Endoscopic (ICD-10-PCS; CPT 43235; principal; 2022-10-23 14:40)
DX: T18.128A Food in esophagus causing other injury, initial encounter (principal); K20.80 Other esophagitis without bleeding; K22.2 Esophageal obstruction; R13.10 Dysphagia, unspecified; I10 Essential (primary) hypertension; E78.5 Hyperlipidemia, unspecified; G47.33 Obstructive sleep apnea (adult) (pediatric); F41.1 Generalized anxiety disorder; C44.622 Squamous cell carcinoma of skin of right upper limb, including shoulder; F11.20 Opioid dependence, uncomplicated; F17.210 Nicotine dependence, cigarettes, uncomplicated
CPT/HCPCS: 43247; 36415; 80048; 85025; 85610; 93005; 96361; 96374; 99285; J1610; J3010

== ENCOUNTER 2022-11-26 07:43 | Outpatient (REF) | payer MEDICARE, MEDICAID, SELFPAY | END 2022-11-26 07:44 | disposition home or self-care (01) | LOC: HO.XRAY 07:43 | PROVIDERS: PCP Physician Assistant; Visit Provider Internal Medicine Gastroenterology | DX: R13.19 Other dysphagia (principal) | CPT/HCPCS: 74220 ==

== ENCOUNTER → 2022-11-26 07:45 | Outpatient (BNV) | payer MEDICARE, MEDICAID, SELFPAY | PROVIDERS: PCP Physician Assistant; Visit Provider Radiology Diagnostic Radiology | DX: R13.10 Dysphagia, unspecified (principal) | CPT/HCPCS: 74221 ==

== ENCOUNTER 2022-12-02 10:47 | Outpatient (REF) | payer MEDICARE, MEDICAID, SELFPAY ==
[2022-12-02 10:20] VITALS: BP 166/82; PULSE 63; RESP 18; O2SAT 96
[2022-12-02 13:43] VITALS: BP 136/84; PULSE 87; RESP 18; TEMP 36.3; O2SAT 95; BMI 30.9
== END 2022-12-02 10:48 | disposition home or self-care (01) ==
LOC: HO.MS 10:47
PROVIDERS: PCP Physician Assistant; Visit Provider Ophthalmology
DX: H02.045 Spastic entropion of left lower eyelid (principal)

== ENCOUNTER 2023-02-11 14:36 | Outpatient (REF) | payer SELFPAY | END 2023-02-11 14:37 | disposition home or self-care (01) | LOC: HO.HAP 14:36 | PROVIDERS: Visit Provider Physician Assistant | DX: Z46.1 Encounter for fitting and adjustment of hearing aid (principal); H90.3 Sensorineural hearing loss, bilateral | CPT/HCPCS: V5267 ==

== ENCOUNTER 2023-04-23 06:43 | Outpatient (REF) | payer MEDICARE, MEDICAID, SELFPAY ==
[2023-04-23 07:47] LABS: Appearance Urine Clear; Color Urine Yellow; Glucose Urine UA Negative (Negative); Leukocyte Esterase Urine Negative (Negative); Nitrite Urine Negative (Negative); PH 5.5 (5.0-9.0); Urine Blood Negative (Negative); Urine Ketones Negative (Negative); Urine Protein Negative (Neg-Trace)
[2023-04-23 08:25] LABS: Creatinine Urine 148.88 mg/dL; Microalbum/Creatinine Ratio Ur 3.3 ug/mg cr (<30)
[2023-04-23 08:33] LABS: Alanine Aminotransferase 31 U/L (0-40); Albumin Level 3.7 g/dL (3.5-5.0); Alkaline Phosphatase 91 U/L (39-117); Anion Gap 10 (12-20); Aspartate Amino Transferase 22 U/L (5-37); Bilirubin Total 0.4 mg/dL (0.0-1.0); Blood Urea Nitrogen 18 mg/dL (9-16); Calcium 8.8 mg/dL (8.4-10.2); Carbon Dioxide 24 mmol/L (22-29); Chloride 109 mmol/L (96-108); Cholesterol 200 mg/dL (<200); Estimated Glomerular Filt Rate > 60; Glucose Fasting 97 mg/dL (60-99); HDL Cholesterol 36 mg/dL (>40); LDL Cholesterol Calculated 126 mg/dL (<100); Lipase 13 U/L (8-78); Potassium 4.5 mmol/L (3.3-5.1); Sodium 138 mmol/L (135-145); Total Protein 6.6 g/dL (6.5-8.0); Triglycerides 193 mg/dL (<150)
[2023-04-23 08:49] LABS: Prostate Specific Antigen Scr 0.83 ng/mL (<0.05-4.0)
== END 2023-04-23 06:44 | disposition home or self-care (01) ==
LOC: HO.LAB 06:43
PROVIDERS: PCP Physician Assistant; Visit Provider Physician Assistant
DX: I10 Essential (primary) hypertension (principal); E78.00 Pure hypercholesterolemia, unspecified; R30.0 Dysuria; R10.9 Unspecified abdominal pain; Z12.5 Encounter for screening for malignant neoplasm of prostate
CPT/HCPCS: 36415; 80053; 80061; 81003; 82043; 82570; 83690; 84153

== ENCOUNTER 2023-05-01 11:10 | Outpatient (AMB) | payer MEDICARE, MEDICAID, SELFPAY ==
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
[2023-05-01 11:51] VITALS: BP 118/86; PULSE 70; RESP 17; O2SAT 98; BMI 32.6
== END 2023-05-01 12:25 | disposition home or self-care (01) ==
PROVIDERS: Visit Provider Physician Assistant
DX: Z00.00 Encounter for general adult medical examination without abnormal findings (principal); E78.00 Pure hypercholesterolemia, unspecified; F11.20 Opioid dependence, uncomplicated; F33.1 Major depressive disorder, recurrent, moderate; F17.210 Nicotine dependence, cigarettes, uncomplicated; G47.33 Obstructive sleep apnea (adult) (pediatric); F41.1 Generalized anxiety disorder; I10 Essential (primary) hypertension
CPT/HCPCS: 99397; 99406

== ENCOUNTER 2023-06-09 15:23 | Outpatient (AMB) | payer MEDICARE, MEDICAID, SELFPAY ==
[2023-06-09 15:44] VITALS: BP 122/78; PULSE 70; O2SAT 96; BMI 32.8
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
== END 2023-06-09 16:18 | disposition home or self-care (01) ==
LOC: HO.HMGH 15:26
PROVIDERS: PCP Physician Assistant; Visit Provider Physician Assistant
DX: S60.451A Superficial foreign body of left index finger, initial encounter (principal); Z23 Encounter for immunization
CPT/HCPCS: 90471; 90714; 99213

== ENCOUNTER 2023-06-25 13:38 | Outpatient (AMB) | payer MEDICARE, MEDICAID, SELFPAY ==
[2023-06-25 13:46] VITALS: BP 96/62; PULSE 80; O2SAT 95; BMI 32.8
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
== END 2023-06-25 14:22 | disposition home or self-care (01) ==
PROVIDERS: PCP Physician Assistant; Visit Provider Physician Assistant
DX: S89.92XD Unspecified injury of left lower leg, subsequent encounter (principal); S83.207A Unspecified tear of unspecified meniscus, current injury, left knee, initial encounter
CPT/HCPCS: 99213

== ENCOUNTER 2023-07-09 09:30 | Outpatient (REF) | payer MEDICARE, MEDICAID, SELFPAY ==
--- NOTE | ~2023-07-09 | XR_ITS ---
EXAMINATION: XR HAND, LEFT CLINICAL INFORMATION: Pain in the left hand COMPARISON: None available. TECHNIQUE: PA, lateral, and oblique views of the left hand. FINDINGS: There is a rounded metallic object within the soft tissues medial and dorsal to the proximal phalanx of the index finger. Remaining bone and joints are normal. XR/XR hand LT min 3V IMPRESSION: Metallic foreign body in the soft tissues of the index finger.
== END 2023-07-09 09:31 | disposition home or self-care (01) ==
LOC: HO.HOSX 09:30
PROVIDERS: PCP Physician Assistant; Visit Provider Orthopaedic Surgery
DX: M79.642 Pain in left hand (principal); M79.5 Residual foreign body in soft tissue
CPT/HCPCS: 73130; 99202

== ENCOUNTER 2023-07-09 09:30 | Outpatient (AMB) | payer MEDICARE, MEDICAID, SELFPAY ==
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
[2023-07-09 09:48] VITALS: BMI 32.8
== END 2023-07-09 10:33 | disposition home or self-care (01) ==
PROVIDERS: PCP Physician Assistant; Visit Provider Orthopaedic Surgery
DX: M79.5 Residual foreign body in soft tissue (principal)
CPT/HCPCS: 99204

== ENCOUNTER 2023-07-11 10:02 | Outpatient (REF) | payer MEDICARE, MEDICAID, SELFPAY | END 2023-07-11 10:03 | disposition home or self-care (01) | LOC: HO.HAP 10:02 | PROVIDERS: Visit Provider Physician Assistant | DX: Z46.1 Encounter for fitting and adjustment of hearing aid (principal); H90.3 Sensorineural hearing loss, bilateral | CPT/HCPCS: V5266 ==

== ENCOUNTER 2023-08-20 11:29 | Outpatient (REF) | payer SELFPAY | END 2023-08-20 11:30 | disposition home or self-care (01) | LOC: HO.HAP 11:29 | PROVIDERS: Visit Provider Physician Assistant | DX: Z46.1 Encounter for fitting and adjustment of hearing aid (principal); H90.3 Sensorineural hearing loss, bilateral | CPT/HCPCS: V5267 ==

== ENCOUNTER 2023-08-28 10:25 | Day surgery (SDC) | payer MEDICARE, SELFPAY ==
[2023-08-28 11:38] VITALS: BMI 31.8
[2023-08-28 11:42] VITALS: BP 144/77; PULSE 61; RESP 18; TEMP 36.6; O2SAT 95
--- NOTE | 2023-08-28 12:54 | MHC.SHP ---
Pre-Procedural Eval Section A - 24 Hr Update-Section A only Date of Service: 08/28/23 The patient is an INPATIENT: No Changes since office visit: No Cold of Flu in the past 2 weeks, No New Medical Problems, No Changes in Medication and No Patient answered all questions The patient has been examined within 24 hours of the surgical procedure. The History & Physical has been completed within 30 days and I have reviewed it.: Yes Section B - Complete if H&P > 30 days Chief Complaint: Residual foreign body in soft tissue Allergies: Allergies Allergy/AdvReac Type Severity Reaction Status Date / Time Penicillins [PENICILLINS] Allergy Unknown HIVES Verified 08/28/23 11:39 atorvastatin AdvReac Intermediate myalgia Verified 08/28/23 11:39 fluoxetine [From PROZAC] AdvReac Unknown PT Verified 08/28/23 11:39 REPORTED IT MADE ME SPEED UP Plan I have reviewed the history and physical and performed a pertinent physical examination on my patient. No changes have occurred unless specified. Time Spent With Patient Time: Total time managing care of this patient today ____ minutes.
--- NOTE | 2023-08-28 12:55 | W.PM.OPN ---
Operative Note Operative Note Date of Service: 08/28/23 Narrative: Operative Note Preop diagnosis: 1. Left index finger retained foreign body Postop diagnosis: same Procedure: 1. Left index finger foreign body excision Surgeon: Darcy Bay MD Traffic Engineering Director: Cornell Segovia Anesthesia: digital block using 1% lidocaine with epinephrine Findings: A spherical metallic foreign body consistent with a BB measuring approximately 3-4 mm in diameter was removed and sent to the lab EBL: Less than 5 mL Tourniquet time: None Specimens: None Complications: None Disposition: Brought to recovery room in stable condition Plan: Follow-up for 7-10 days for wound check and suture removal and to check pathology Indications: The patient is 68 years old, with left index finger retained foreign body/BB . The risks and benefits of operative treatment including but not limited to risk of damage to blood vessels, nerves, tendons, infection, persistent pain, persistent symptoms, recurrence or possible need for additional surgery were discussed with the patient and the patient wishes to proceed with surgery. Procedure: Once consent was obtained a digital block was performed in the preop area using a combination of 1% lidocaine with epinephrine. The patient was then brought back to the operating suite and placed on the operative table in supine position. A tourniquet was applied to the proximal aspect of the left upper extremity and the limb was prepped and draped in a standard surgical fashion. Once assured that we had a good block, I made a 1.5 cm longitudinal incision centered over the foreign body on the dorsal radial aspect of his left index finger. The incision was made through the skin the subcutaneous tissues using a 15. Blade. I then dissected down into the subcutaneous tissues. There I identified the spherical metallic foreign body measuring about 4 mm in diameter. It was encased in some scar tissue. It was carefully dissected out from the patient and placed on the back table. Once satisfied with our foreign body removal the wound was copiously irrigated with normal saline and hemostasis was obtained with a brief period of local pressure. The skin edges were reapproximated with some 5.0 nylon suture material and a sterile dressing was applied. The patient appears to have tolerated the procedure well and with no complications. All digits were well vascularized at the conclusion of the case.
--- NOTE | 2023-08-28 15:07 | PC.NURSE ---
VITAL SIGNS: 98% RA, HR 58, bp 120/54, R 18.
== END 2023-08-28 15:05 | disposition home or self-care (01) ==
PROVIDERS: PCP Physician Assistant; Visit Provider Orthopaedic Surgery
PROC: (CPT 10120; principal; 2023-08-28 13:30)
DX: M79.5 Residual foreign body in soft tissue (principal); M79.642 Pain in left hand; Z87.828 Personal history of other (healed) physical injury and trauma; Z98.890 Other specified postprocedural states; F32.A Depression, unspecified; F41.9 Anxiety disorder, unspecified; F11.90 Opioid use, unspecified, uncomplicated; F17.210 Nicotine dependence, cigarettes, uncomplicated; G47.33 Obstructive sleep apnea (adult) (pediatric); Z88.0 Allergy status to penicillin; Z88.8 Allergy status to other drugs, medicaments and biological substances; Z56.0 Unemployment, unspecified
CPT/HCPCS: 10120; 88300; 88304; J0171

== ENCOUNTER → 2023-08-28 10:25 | Outpatient (BNV) | payer MEDICARE, MEDICAID, SELFPAY | PROVIDERS: PCP Physician Assistant; Visit Provider Orthopaedic Surgery | DX: S60.451A Superficial foreign body of left index finger, initial encounter (principal) | CPT/HCPCS: 10120 ==

== ENCOUNTER 2023-09-02 17:20 | Outpatient (REF) | payer MEDICARE, MEDICAID, SELFPAY ==
--- NOTE | ~2023-09-02 | MR_ITS ---
EXAMINATION: MR KNEE WITHOUT CONTRAST, LEFT CLINICAL INFORMATION: Left knee pain, recent injury. Recurrent left knee pain. COMPARISON: None available. TECHNIQUE: MRI of the knee without contrast was performed using routine sequences on a high-field scanner. FINDINGS: MENISCI: Medial Meniscus: Complex tear of the posterior horn and body with a dominant radial component at the anterior third of the meniscal body and a horizontal component propagating along the meniscal undersurface and free edge margin at the posterior horn and body. Meniscal body is extruded medially. Lateral Meniscus: Mild degenerative intrasubstance signal in the anterior horn. No tears. LIGAMENTS: Cruciate: Intact Collateral: Intact EXTENSOR MECHANISM: Intact ARTICULAR CARTILAGE/BONE: There is a 9 mm chondroid lesion within the distal femoral metaphysis centrally, most consistent with an enchondroma. No suspicious features. Patellofemoral Compartment: Moderate nonuniform articular cartilage loss is present at the medial facet and median ridge of the patella with full-thickness fissuring, subcortical edema, and subcortical cystic change. Additional moderate to high-grade cartilage loss is present at the medial trochlear facet with a 1.5 x 1.5 cm region of full-thickness cartilage loss, cortical irregularity, subcortical edema, and subcortical cystic change. Small marginal osteophytes. More mild chondral thinning at the lateral facets. Medial Compartment: Small marginal osteophytes. Moderate nonuniform chondral thinning at the posterior weight-bearing surface of the lateral femoral condyle and posterior nonweight-bearing surface with foci of full-thickness chondral fissuring, cortical irregularity, and subcortical edema. More mild chondral thinning at the medial tibial plateau. Small marginal osteophytes. Lateral Compartment: Normal JOINT FLUID AND BURSAE: Trace joint fluid, within normal limits. Trace Jason's cyst. No significant loose bodies. MR/MR knee LT wo con IMPRESSION: 1. Complex tear of the posterior horn and body of the medial meniscus with a dominant radial component at the anterior third of the meniscal body. 2. Moderate patellofemoral compartment osteoarthritis, characterized primarily by cartilage loss at the medial facets. 3. [id number] medial compartment osteoarthritis. 4. Trace Jason's cyst.
== END 2023-09-02 17:21 | disposition home or self-care (01) ==
LOC: HO.MRI 17:20
PROVIDERS: PCP Physician Assistant; Visit Provider Physician Assistant
DX: S83.207A Unspecified tear of unspecified meniscus, current injury, left knee, initial encounter (principal)
CPT/HCPCS: 73721

== ENCOUNTER 2023-09-09 11:03 | Outpatient (AMB) | payer MEDICARE, MEDICAID, SELFPAY ==
[2023-09-09 11:21] VITALS: BP 130/80; PULSE 72; O2SAT 99; BMI 31.1
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
== END 2023-09-09 11:50 | disposition home or self-care (01) ==
PROVIDERS: PCP Physician Assistant; Visit Provider Physician Assistant
DX: S83.207A Unspecified tear of unspecified meniscus, current injury, left knee, initial encounter (principal); F33.1 Major depressive disorder, recurrent, moderate; R09.89 Other specified symptoms and signs involving the circulatory and respiratory systems; F17.210 Nicotine dependence, cigarettes, uncomplicated; I10 Essential (primary) hypertension
CPT/HCPCS: 99214; 99406

== ENCOUNTER 2023-09-10 08:20 | Outpatient (REF) | payer MEDICARE, MEDICAID, SELFPAY ==
--- NOTE | ~2023-09-10 | XR_ITS ---
EXAMINATION: XR CHEST CLINICAL INFORMATION: Circulatory symptoms. COMPARISON: May 25, 2021, November 28, 2019. TECHNIQUE: 2 views of the chest were obtained. FINDINGS: Heart size is normal. S-shaped thoracolumbar scoliosis with multilevel degenerative changes. There is no gross pneumothorax. Low lung volumes. Mild bibasilar streaky opacities likely represent subsegmental atelectasis, although an infectious/inflammatory process should also be considered in the appropriate clinical setting. No significant pleural effusion. XR/XR chest 2V IMPRESSION: Mild bibasilar streaky opacities likely represent subsegmental atelectasis, although an infectious/inflammatory process should also be considered in the appropriate clinical setting. This study was presented today September 23, 2023 for interpretation. Stat results provided at this time as requested by referring provider.
== END 2023-09-10 08:21 | disposition home or self-care (01) ==
LOC: HO.XRAY 08:20
PROVIDERS: PCP Physician Assistant; Visit Provider Physician Assistant
DX: R09.89 Other specified symptoms and signs involving the circulatory and respiratory systems (principal)
CPT/HCPCS: 71046

== ENCOUNTER 2023-09-23 11:34 | Outpatient (REF) | payer MEDICARE, SELFPAY | END 2023-09-23 11:35 | disposition home or self-care (01) | LOC: HO.HAP 11:34 | PROVIDERS: Visit Provider Physician Assistant | DX: Z13.89 Encounter for screening for other disorder (principal) ==

== ENCOUNTER 2023-10-08 09:31 | Outpatient (REF) | payer MEDICARE, MEDICAID, SELFPAY ==
--- NOTE | ~2023-10-08 | XR_ITS ---
EXAMINATION: CHEST 2 VIEWS CLINICAL INFORMATION: R09.89 - Other specified symptoms and signs involving the circulatory an... COMPARISON: Chest x-ray 09/10/2023. TECHNIQUE: 2 views of the chest. FINDINGS: Devices: None. Mediastinum: Cardiomediastinal silhouette within normal limits. Pulmonary vascularity is normal. Lungs: Normal expansion. Chronic scarring in the left lower lobe. No focal consolidation. Pleura: No pleural effusion or pneumothorax. Bones: Degenerative changes in the spine. Upper Abdomen: Unremarkable. XR/XR chest 2V IMPRESSION: No acute cardiopulmonary findings. Electronically signed by: Mazin Gonzalez MD 10/27/2023 01:04 PM EDT
== END 2023-10-08 09:32 | disposition home or self-care (01) ==
LOC: HO.XRAY 09:31
PROVIDERS: PCP Physician Assistant; Visit Provider Physician Assistant
DX: R09.89 Other specified symptoms and signs involving the circulatory and respiratory systems (principal)
CPT/HCPCS: 71046

== ENCOUNTER → 2023-11-03 09:35 | Outpatient (BNVA) | payer MEDICARE, SELFPAY | PROVIDERS: PCP Physician Assistant; Visit Provider Physician Assistant ==

== ENCOUNTER 2023-11-10 13:02 | Outpatient (AMB) | payer MEDICARE, MEDICAID, SELFPAY ==
[2023-11-10 13:09] VITALS: BP 102/66; PULSE 72; O2SAT 98; BMI 31.0
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
== END 2023-11-10 13:41 | disposition home or self-care (01) ==
PROVIDERS: PCP Physician Assistant; Visit Provider Physician Assistant
DX: F33.1 Major depressive disorder, recurrent, moderate (principal); R09.89 Other specified symptoms and signs involving the circulatory and respiratory systems; F17.210 Nicotine dependence, cigarettes, uncomplicated; I10 Essential (primary) hypertension; K21.9 Gastro-esophageal reflux disease without esophagitis

== ENCOUNTER → 2023-11-10 13:02 | Outpatient (BNVA) | payer MEDICARE, MEDICAID, SELFPAY | PROVIDERS: PCP Physician Assistant; Visit Provider Physician Assistant | DX: F33.1 Major depressive disorder, recurrent, moderate (principal); R09.89 Other specified symptoms and signs involving the circulatory and respiratory systems; I10 Essential (primary) hypertension; K21.9 Gastro-esophageal reflux disease without esophagitis; F17.210 Nicotine dependence, cigarettes, uncomplicated; Z71.6 Tobacco abuse counseling | CPT/HCPCS: 99212 ==

== ENCOUNTER 2023-11-10 13:54 | Outpatient (REF) | payer MEDICARE, MEDICAID, SELFPAY | END 2023-11-10 13:55 | disposition home or self-care (01) | LOC: HO.HAP 13:54 | PROVIDERS: Visit Provider Physician Assistant | DX: Z46.1 Encounter for fitting and adjustment of hearing aid (principal) | CPT/HCPCS: V5014 ==

== ENCOUNTER 2023-11-20 09:08 | Outpatient (REF) | payer MEDICARE, MEDICAID, SELFPAY ==
--- NOTE | 2023-11-20 10:13 | MHC.AU.MED ---
Medical Clearance for Hearing Instrumentation Date: 11/20/23 Patient Name: Wilver Milner Date of : 1955 Primary Care Provider: Referring Provider: Surinder Jordan PA-C We have seen your patient on 11/20/23 and have determined that they are a candidate for amplification (See accompanying report). Specifically, they would benefit from: Hearing aid use in both ears There is a statute that addresses Medical Evaluation Requirements prior to fitting a patient with a hearing aid. According to [place] statute 265 CMR:6.03(1), (a) General. Except as provided in 265 CMR 6.03(1)(b), a deaf and hard of hearing teacher shall not sell a hearing aid unless the prospective user has presented to the deaf and hard of hearing teacher a written statement signed by a licensed physician that states that the patient's hearing loss has been medically evaluated and the patient may be considered a candidate for a hearing aid. The medical evaluation must have taken place within the preceding six months. Please note: Due to the [place] Statute referenced above, we cannot accept a signature other than that of a licensed physician. INVESTIGATIVE SHOPPER and PA signatures cannot be accepted. I am in agreement with the above recommendation. There is no medical contraindication for hearing instrumentation. Physician Signature Date Physician Name (Printed)
== END 2023-11-20 09:09 | disposition home or self-care (01) ==
LOC: HO.SH 09:08
PROVIDERS: Visit Provider Physician Assistant
DX: Z01.118 Encounter for examination of ears and hearing with other abnormal findings (principal); Z46.1 Encounter for fitting and adjustment of hearing aid; H90.3 Sensorineural hearing loss, bilateral
CPT/HCPCS: 92552; 92556; 92591

== ENCOUNTER 2023-12-16 08:03 | Outpatient (REF) | payer MEDICARE, MEDICAID, SELFPAY ==
[2023-12-16 09:29] LABS: Alanine Aminotransferase 31 U/L (0-40); Alkaline Phosphatase 109 U/L (39-117); Anion Gap 13 (12-20); Aspartate Amino Transferase 22 U/L (5-37); Bilirubin Total 0.3 mg/dL (0.0-1.0); Blood Urea Nitrogen 20 mg/dL (9-16); Calcium 9.8 mg/dL (8.4-10.2); Carbon Dioxide 26 mmol/L (22-29); Chloride 106 mmol/L (96-108); Cholesterol 233 mg/dL (<200); Estimated Glomerular Filt Rate > 60; Glucose Fasting 102 mg/dL (60-99); HDL Cholesterol 48 mg/dL (>40); LDL Cholesterol Calculated 153 mg/dL (<100); Potassium 4.1 mmol/L (3.3-5.1); Sodium 141 mmol/L (135-145); Total Protein 6.9 g/dL (6.5-8.0); Triglycerides 162 mg/dL (<150)
== END 2023-12-16 08:04 | disposition home or self-care (01) ==
LOC: HO.LAB 08:03
PROVIDERS: PCP Physician Assistant; Visit Provider Physician Assistant
DX: I10 Essential (primary) hypertension (principal); E78.00 Pure hypercholesterolemia, unspecified
CPT/HCPCS: 36415; 80053; 80061

== ENCOUNTER 2024-01-14 13:50 | Outpatient (REF) | payer MEDICARE, MEDICAID, SELFPAY | END 2024-01-14 13:51 | disposition home or self-care (01) | LOC: HO.HAP 13:50 | PROVIDERS: Visit Provider Physician Assistant | DX: Z46.1 Encounter for fitting and adjustment of hearing aid (principal); H90.3 Sensorineural hearing loss, bilateral | CPT/HCPCS: V5011; V5020; V5160; V5261; V5264; V5266 ==

== ENCOUNTER 2024-02-06 13:13 | Outpatient (REF) | payer MEDICARE, MEDICAID, SELFPAY | END 2024-02-06 13:14 | disposition home or self-care (01) | LOC: HO.HAP 13:13 | PROVIDERS: Visit Provider Internal Medicine | DX: Z13.89 Encounter for screening for other disorder (principal) ==

== ENCOUNTER 2024-04-01 10:12 | Outpatient (AMB) | payer MEDICARE, MEDICAID, SELFPAY ==
[2024-04-01 10:20] VITALS: BP 140/86; PULSE 88; O2SAT 96; BMI 31.5
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
--- OUTSIDE RECORDS SUMMARY | 2024-04-01 10:56 | XMS_ITS ---
Author Organization [facility] Address [address] [place] [phone] Care Team Providers Care Billing Specialist Name Role Phone Surinder Jordan Primary Care Provider Unavailab Rafiq Castañeda Jr Unavailable REASON FOR VISIT egd w/ balloon Encounters Encounter Location Date Provider Diagnosis [facility] [address] [place] [phone] 12/16/2022 Rafiq Grayson Jr PLAN OF TREATMENT No Information
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
--- OUTSIDE RECORDS SUMMARY | 2024-04-01 10:56 | XMS_ITS ---
Author Organization [facility] Address [address] [place] [phone] Care Team Providers Care Newspaper Reporter Name Role Phone Surinder Jordan Primary Care Provider Unavailab Rafiq Castañeda Jr Unavailable REASON FOR VISIT followup PROBLEMS Problem Type ICD Code Onset Dates Problem Status W/U Status Risk SNOMED Code Notes Problem Esophageal dysphagia (R13.19) Active confirmed 97102199 Encounters Encounter Location Date Provider Diagnosis [facility] [address] [place] [phone] 10/24/2022 Rafiq Grayson Jr Esophageal dysphagia R13.19 ASSESSMENTS Encounter Date Diagnosis Assessment Notes Treatment Notes Treatment Clinical Notes 10/24/2022 Esophageal dysphagia (ICD-10 - R13.19) PLAN OF TREATMENT Pending Test Test Name Order Date XR BARIUM SWALLOW-ESOPHAGUS 10/24/2022 Future Test Test Name Order Date UPPER GI ENDOSCOPY BALLOOON DILATION OF ESOPH 10/24/2022
--- OUTSIDE RECORDS SUMMARY | 2024-04-01 10:57 | XMS_ITS ---
Author Organization [facility] Address [address] [place] [address] Care Team Providers Care Education Associate Name Role Phone Surinder Jordan Primary Care Provider Unavailab Rafiq Castañeda Jr Unavailable REASON FOR VISIT esophageal dysphagia Encounters Encounter Location Date Provider Diagnosis [facility] [place] [place] Outpatient [address], [place] [id number] 01/08/2023 Rafiq Grayson Jr PLAN OF TREATMENT No Information
== END 2024-04-01 10:48 | disposition home or self-care (01) ==
PROVIDERS: PCP Physician Assistant; Visit Provider Internal Medicine Pulmonary Disease
DX: T17.900A Unspecified foreign body in respiratory tract, part unspecified causing asphyxiation, initial encounter (principal); J44.9 Chronic obstructive pulmonary disease, unspecified; Z87.891 Personal history of nicotine dependence
CPT/HCPCS: 99204

== ENCOUNTER → 2024-04-01 10:12 | Outpatient (BNVA) | payer MEDICARE, MEDICAID, SELFPAY | PROVIDERS: PCP Physician Assistant; Visit Provider Internal Medicine Pulmonary Disease | DX: J44.9 Chronic obstructive pulmonary disease, unspecified (principal); T17.900A Unspecified foreign body in respiratory tract, part unspecified causing asphyxiation, initial encounter; Z87.891 Personal history of nicotine dependence | CPT/HCPCS: 99202 ==

== ENCOUNTER 2024-04-14 13:18 | Outpatient (AMB) | payer MEDICARE, MEDICAID, SELFPAY ==
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
[2024-04-14 13:33] VITALS: BP 120/70; PULSE 93; TEMP 36.2; O2SAT 96; BMI 31.6
--- OUTSIDE RECORDS SUMMARY | 2024-04-14 16:17 | XMS_ITS ---
Author Organization [facility] Address [address] [place] [address] Care Team Providers Care Training Personnel Supervisor Name Role Phone Surinder Jordan Primary Care Provider Unavailab Rafiq Castañeda Jr Unavailable REASON FOR VISIT esophageal dysphagia Encounters Encounter Location Date Provider Diagnosis [facility] Outpatient [address] [place], [place] [id number] 01/08/2023 Rafiq Grayson Jr PLAN OF TREATMENT No Information
--- OUTSIDE RECORDS SUMMARY | 2024-04-14 16:17 | XMS_ITS ---
Author Organization [facility] Address [address] [place] [phone] Care Team Providers Care Pattern Duplicator Name Role Phone Surinder Jordan Primary Care Provider Unavailab Rafiq Castañeda Jr Unavailable REASON FOR VISIT egd w/ balloon Encounters Encounter Location Date Provider Diagnosis [facility] [address] [place] [phone] 12/16/2022 Rafiq Grayson Jr PLAN OF TREATMENT No Information
--- OUTSIDE RECORDS SUMMARY | 2024-04-14 16:17 | XMS_ITS | Patient Health Record ---
Author Organization [facility] Address [address] [place] [phone] Care Team Providers Care Advisory Services Associate Name Role Phone Surinder Jordan Primary Care Provider UnavailRafiq Kwok Jr Unavailable [phone] ALLERGIES Allergen (clinical drug ingredient) Drug/Non Drug Allergy documented on EMR Reaction Allergy Type Onset Date Status Penicillin Unknown Drug Allergy Active REASON FOR REFERRAL No Information MEDICATIONS Medication SIG (Take, Route, Frequency, Duration) Notes Start Date End Date Status Grethel 3-6-9 Complex Active traZODone HCl 50 MG [...] W/U Status Risk SNOMED Code Notes Problem Colon cancer screening (Z12.11) Active confirmed 997572673 Problem Change in bowel habits (R19.4) Active confirmed 401726321 Problem Other hemorrhoids (K64.8) Active confirmed 94474839 Problem Opioid dependence in remission (F11.21) Active confirmed 729048935 Problem Long-term current use of high risk medication other than anticoagulant (Z79.899) Active confirmed 442611204 Problem Esophageal dysphagia (R13.19) Active confirmed 33857857 PLAN OF TREATMENT Pending Test Test Name Order Date XR BARIUM SWALLOW-ESOPHAGUS 10/24/2022 Future Test Test Name Order Date COLONOSCOPY 02/02/2015 COLONOSCOPY 07/19/2020 UPPER GI ENDOSCOPY BALLOOON DILATION OF ESOPH 10/24/2022 Insurance Providers Payer Name Payer Address Payer Phone Subscriber Number Group Number Insured Name Patient Relationship to Insured Coverage Start Date Coverage End Date MEDICARE OF [place] [address] [place] [address] [id number] COTY YEE Self - patient is the insured MEDICAID OF [facility] [address] [place] [address] [id number] COTY YEE Self - patient is the [...]
--- OUTSIDE RECORDS SUMMARY | 2024-04-14 16:17 | XMS_ITS ---
Author Organization [facility] Address [address] [place] [phone] Care Team Providers Care Lot Boss Name Role Phone Surinder Jordan Primary Care Provider Unavailab Rafiq Castañeda Jr Unavailable [phone] REASON FOR VISIT followup PROBLEMS Problem Type ICD Code Onset Dates Problem Status W/U Status Risk SNOMED Code Notes Problem Esophageal dysphagia (R13.19) Active confirmed 83365823 Encounters Encounter Location Date Provider Diagnosis [facility] [address] [place] [phone] 10/24/2022 Rafiq Grayson Jr Esophageal dysphagia R13.19 ASSESSMENTS Encounter Date Diagnosis Assessment Notes Treatment Notes Treatment Clinical Notes 10/24/2022 Esophageal dysphagia (ICD-10 - R13.19) PLAN OF TREATMENT Pending Test Test Name Order Date XR BARIUM SWALLOW-ESOPHAGUS 10/24/2022 Future Test Test Name Order Date UPPER GI ENDOSCOPY BALLOOON DILATION OF ESOPH 10/24/2022
== END 2024-04-14 14:17 | disposition home or self-care (01) ==
PROVIDERS: PCP Physician Assistant
DX: M54.6 Pain in thoracic spine (principal); M53.3 Sacrococcygeal disorders, not elsewhere classified; G89.29 Other chronic pain

== ENCOUNTER → 2024-04-14 13:18 | Outpatient (BNVA) | payer MEDICARE, MEDICAID, SELFPAY | PROVIDERS: PCP Physician Assistant | DX: M54.6 Pain in thoracic spine (principal); M53.3 Sacrococcygeal disorders, not elsewhere classified; G89.29 Other chronic pain | CPT/HCPCS: 96127; 99212 ==

== ENCOUNTER 2024-04-15 08:07 | Outpatient (REF) | payer MEDICARE, MEDICAID, SELFPAY ==
--- NOTE | ~2024-04-15 | XR_ITS ---
CLINICAL HISTORY: M54.9 - Dorsalgia, unspecified Exam: AP, lateral, and spot lateral views of the lumbar spine. Comparison: September 21, 2020. Findings: Bones are osteopenic. Bony alignment of the lumbar vertebral bodies is anatomic. No acute fracture. Disc space heights are well preserved. Anterior osteophytic ridging is seen at L3-4, L4-5, and L5-S1. Moderate facet joint degenerative change from L2-3 inferiorly. Impression: Degenerative facet disease as above. This document has been electronically signed by: Quan Urban MD on 04/15/2024 10:46:48
--- OUTSIDE RECORDS SUMMARY | 2024-04-15 08:19 | XMS_ITS ---
Author Organization [facility] Address [address] [place] [phone] Care Team Providers Care Side Seam Envelope Machine Operator Name Role Phone Surinder Jordan Primary Care Provider Unavailab Rafiq Castañeda Jr Unavailable REASON FOR VISIT egd w/ balloon Encounters Encounter Location Date Provider Diagnosis [facility] [address] [place] [phone] 12/16/2022 Rafiq Grayson Jr PLAN OF TREATMENT No Information
--- OUTSIDE RECORDS SUMMARY | 2024-04-15 08:19 | XMS_ITS ---
Author Organization [facility] Address [address] [place] [phone] Care Team Providers Care Window And Door Installer Name Role Phone Surinder Jordan Primary Care Provider Unavailab Rafiq Castañeda Jr Unavailable REASON FOR VISIT followup PROBLEMS Problem Type ICD Code Onset Dates Problem Status W/U Status Risk SNOMED Code Notes Problem Esophageal dysphagia (R13.19) Active confirmed 32831742 Encounters Encounter Location Date Provider Diagnosis [facility] [address] [place] [phone] 10/24/2022 Rafiq Grayson Jr Esophageal dysphagia R13.19 ASSESSMENTS Encounter Date Diagnosis Assessment Notes Treatment Notes Treatment Clinical Notes 10/24/2022 Esophageal dysphagia (ICD-10 - R13.19) PLAN OF TREATMENT Pending Test Test Name Order Date XR BARIUM SWALLOW-ESOPHAGUS 10/24/2022 Future Test Test Name Order Date UPPER GI ENDOSCOPY BALLOOON DILATION OF ESOPH 10/24/2022
--- OUTSIDE RECORDS SUMMARY | 2024-04-15 08:19 | XMS_ITS ---
Author Organization [facility] Address [address] [place] [address] Care Team Providers Care Salesperson Handbags Name Role Phone Surinder Jordan Primary Care Provider Unavailab Rafiq Castañeda Jr Unavailable REASON FOR VISIT esophageal dysphagia Encounters Encounter Location Date Provider Diagnosis [facility] [address] [place], [place] [id number] 01/08/2023 Rafiq Grayson Jr PLAN OF TREATMENT No Information
--- OUTSIDE RECORDS SUMMARY | 2024-04-15 08:19 | XMS_ITS | Patient Health Record ---
Author Organization [facility] Address [address] [place] [phone] Care Team Providers Care Lobsterman Name Role Phone Surinder Jordan Primary Care Provider UnavailRafiq Kwok Jr Unavailable ALLERGIES Allergen (clinical drug ingredient) Drug/Non Drug Allergy documented on EMR Reaction Allergy Type Onset Date Status Penicillin Unknown Drug Allergy Active REASON FOR REFERRAL No Information MEDICATIONS Medication SIG (Take, Route, Frequency, Duration) Notes Start Date End Date Status [place] 3-6-9 Complex Active traZODone HCl 50 MG [...] Problem Colon cancer screening (Z12.11) Active confirmed 617111822 Problem Change in bowel habits (R19.4) Active confirmed 473228514 Problem Other hemorrhoids (K64.8) Active confirmed 31468628 Problem Opioid dependence in remission (F11.21) Active confirmed 746623336 Problem Long-term current use of high risk medication other than anticoagulant (Z79.899) Active confirmed 443694316 Problem Esophageal dysphagia (R13.19) Active confirmed 86430176 PLAN OF TREATMENT Pending Test Test Name Order Date XR BARIUM SWALLOW-ESOPHAGUS 10/24/2022 Future Test Test Name Order Date COLONOSCOPY 02/02/2015 COLONOSCOPY 07/19/2020 UPPER GI ENDOSCOPY BALLOOON DILATION OF ESOPH 10/24/2022 Insurance Providers Payer Name Payer Address Payer Phone Subscriber Number Group Number Insured Name Patient Relationship to Insured Coverage Start Date Coverage End Date [place]ARE OF [place] [address] [place] [address] [id number] COTY YEE Self - patient is the insured MEDICAID OF [facility] [address] [place] [address] [id number] COTY YEE Self - patient is the [...]
== END 2024-04-15 08:08 | disposition home or self-care (01) ==
LOC: HO.XRAY 08:07
PROVIDERS: PCP Physician Assistant
DX: M54.9 Dorsalgia, unspecified (principal); Z91.81 History of falling
CPT/HCPCS: 72100

== ENCOUNTER → 2024-04-15 08:10 | Outpatient (BNV) | payer MEDICARE, MEDICAID, SELFPAY | PROVIDERS: PCP Physician Assistant; Visit Provider Radiology Diagnostic Radiology | DX: M54.9 Dorsalgia, unspecified (principal) | CPT/HCPCS: 72100 ==

== ENCOUNTER 2024-05-05 07:49 | Outpatient (REF) | payer MEDICARE, MEDICAID, SELFPAY ==
--- NOTE | ~2024-05-05 | FL_ITS ---
EXAMINATION: XR BARIUM SWALLOW CLINICAL INFORMATION: Unspecified foreign body respiratory tract. COMPARISON: None available. TECHNIQUE: Modified barium swallow was performed under lateral fluoroscopy in presence of speech therapist and various consistencies of barium coated liquid and solid food was administered. FINDINGS: Following oral administration of thin, thick barium, nectar , puree and solid food there is normal propagation bolus from the oral cavity through the pharynx into the esophagus without any obstruction, narrowing. There is no laryngeal penetration or aspiration. No retention of fluids in the valleculae or piriform sinuses. FLUOROSCOPY TIME: 59 seconds DOSE AREA PRODUCT: 690 uGy-m2 (microgray-meter squared) FL/FL Modified Barium Swallow IMPRESSION: Unremarkable modified barium swallow in presence of speech therapist. Correlate with speech therapy results. Electronically signed by: Rojelio Lloyd MD 05/05/2024 03:17 PM EDT
--- NOTE | 2024-05-05 08:55 | PFT_ITS ---
Flows: FEV1: 87 % of predicted at 3.02 L FVC: 99 % of predicted at 4.54 L FEV1/FVC: 66 % Bronchodilator response: Absent Volumes: Total lung capacity: 85 % of predicted at 6.45 L Residual volume: 78 % of predicted at 2.04 L Slow vital capacity: 89 % of predicted at 4.41 L Expiratory reserve volume: 55 % of predicted at 0.76 L Diffusion capacity: Mildly decreased, corrects to normal after adjustment for alveolar ventilation. Impression: Mild obstructive ventilatory defect with no bronchodilator response. Decreased expiratory reserve volume suggests extrathoracic restriction likely secondary to abdominal obesity. Decreased diffusion capacity suggests emphysema. MTDD
[2024-05-05 09:39] VITALS: PULSE 73
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
== END 2024-05-05 07:50 | disposition home or self-care (01) ==
LOC: HO.RESP 07:49
PROVIDERS: PCP Physician Assistant; Visit Provider Internal Medicine Pulmonary Disease
DX: J44.9 Chronic obstructive pulmonary disease, unspecified (principal); T17.900A Unspecified foreign body in respiratory tract, part unspecified causing asphyxiation, initial encounter; R13.14 Dysphagia, pharyngoesophageal phase
CPT/HCPCS: 74230; 92611; 94010; 94640; 94727; 94729

== ENCOUNTER → 2024-05-05 08:55 | Outpatient (BNV) | payer MEDICARE, MEDICAID, SELFPAY | PROVIDERS: PCP Physician Assistant; Visit Provider Internal Medicine Pulmonary Disease | DX: J44.9 Chronic obstructive pulmonary disease, unspecified (principal) | CPT/HCPCS: 94060; 94727; 94729 ==

== ENCOUNTER 2024-05-05 13:42 | Outpatient (REF) | payer MEDICARE, MEDICAID, SELFPAY | END 2024-05-05 13:43 | disposition home or self-care (01) | LOC: HO.XRAY 13:42 | PROVIDERS: PCP Physician Assistant; Visit Provider Internal Medicine Pulmonary Disease | DX: Z13.89 Encounter for screening for other disorder (principal) ==

== ENCOUNTER → 2024-05-05 13:47 | Outpatient (BNV) | payer MEDICARE, MEDICAID, SELFPAY | PROVIDERS: PCP Physician Assistant; Visit Provider Radiology Diagnostic Radiology | DX: J44.9 Chronic obstructive pulmonary disease, unspecified (principal); T17.900A Unspecified foreign body in respiratory tract, part unspecified causing asphyxiation, initial encounter | CPT/HCPCS: 74230 ==

== ENCOUNTER 2024-05-06 10:28 | Outpatient (AMB) | payer MEDICARE, MEDICAID, SELFPAY ==
[2024-05-06 10:39] VITALS: BP 132/86; PULSE 85; O2SAT 96; BMI 31.7
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
--- OUTSIDE RECORDS SUMMARY | 2024-05-06 11:59 | XMS_ITS ---
Author Organization [facility] Address [address] [place] [id number] Care Team Providers Care Electro Winning Operator Name Role Phone Surinder Jordan Primary Care Provider Unavailab Rafiq Castañeda Jr Unavailable REASON FOR VISIT egd w/ balloon Encounters Encounter Location Date Provider Diagnosis [facility] [address] [place] [id number] 12/16/2022 Rafiq Grayson Jr Plan Of Treatment No Information Progress Notes * COTY YEE WDOB:[birth year] (67 yo M)Acc No.[id number]:12/16/2022 Patient:?NAKIA COTY Lucero :1955???Age:67 Y???Sex:Male Address:[address] [facility] [address] [place] [address] * true * Date:? Generated for Printi ng/Faconorg/eTransmitting on:?05/06/2024 11:59 AM EDT
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
--- OUTSIDE RECORDS SUMMARY | 2024-05-06 12:00 | XMS_ITS ---
Author Organization [facility] Address [address] [place] [address] Care Team Providers Care Clinical Laboratory Scientist Name Role Phone Surinder Jordan Primary Care Provider Unavailab Rafiq Castañeda Jr Unavailable [phone] REASON FOR VISIT esophageal dysphagia Encounters Encounter Location Date Provider Diagnosis [facility] [address] [place], [place] [id number] 01/08/2023 Rafiq Grayson Jr Plan Of Treatment No Information Progress Notes * ARTISCOTY Olsen WDOB:[birth year] (69 yo M)Acc No.[id number]:01/08/2023 EGD/MAC Patient:?COTY YEE Provider:?Rafiq Grayson MD :1955???Age:67 Y???Sex:Male Jah e:01/08/2023 Address:[address] [place] [address] [address], [place], [place] Pcp:Surinder Jordan Subjective: * Chief Complaints: * ???1. Esophageal dysphagia. * Medical History:? Objective: * Vitals:? Assessment: Plan: * Treatment: * * The named appointment provid er may or may not be the originator of this progress note, and it is not deemed complete until electronically signed by the appointment provider. Sign off status: Pending * Provider:?Rafiq Grayson MD Date:?1 03/10/2022 Generated for Printi ng/Faxing/eTransmitting on:?05/06/2024 12:00 PM EDT
== END 2024-05-06 11:00 | disposition home or self-care (01) ==
LOC: HO.HPS 10:28
PROVIDERS: PCP Physician Assistant; Visit Provider Internal Medicine Pulmonary Disease
DX: J44.9 Chronic obstructive pulmonary disease, unspecified (principal); Z87.891 Personal history of nicotine dependence; R13.10 Dysphagia, unspecified
CPT/HCPCS: 99214; G2211

== ENCOUNTER → 2024-05-06 10:28 | Outpatient (BNVA) | payer MEDICARE, MEDICAID, SELFPAY | PROVIDERS: PCP Physician Assistant; Visit Provider Internal Medicine Pulmonary Disease | DX: J44.9 Chronic obstructive pulmonary disease, unspecified (principal); R13.10 Dysphagia, unspecified; Z87.891 Personal history of nicotine dependence | CPT/HCPCS: 99212 ==

== ENCOUNTER 2024-05-11 07:42 | Outpatient (AMB) | payer MEDICARE, MEDICAID, SELFPAY ==
[2024-05-11 07:51] VITALS: BP 140/88; PULSE 72; TEMP 36.1; O2SAT 98; BMI 31.6
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
== END 2024-05-11 08:27 | disposition home or self-care (01) ==
PROVIDERS: PCP Physician Assistant; Visit Provider Physician Assistant
DX: Z00.00 Encounter for general adult medical examination without abnormal findings (principal); J41.0 Simple chronic bronchitis; F11.20 Opioid dependence, uncomplicated; F33.1 Major depressive disorder, recurrent, moderate; F17.210 Nicotine dependence, cigarettes, uncomplicated; E78.00 Pure hypercholesterolemia, unspecified; R21 Rash and other nonspecific skin eruption; Z87.891 Personal history of nicotine dependence

== ENCOUNTER 2024-05-11 15:11 | Outpatient (REF) | payer MEDICARE, MEDICAID, SELFPAY ==
--- NOTE | ~2024-05-11 | CT_ITS ---
CLINICAL HISTORY: Z87.891 - Personal history of nicotine dependence CT lung cancer screening (LDCT) Comparison: None Technique: Axial CT images of the chest using low-dose technique. Referring provider counseled the patient on shared decision-making for LDCT screening. Additional counseling was provided on smoking cessation. Effective radiation dose total: DLP 57.9 mGycm, CTDIvol 1.6 mGy. Findings: Lung: Mild emphysema. Calcified granulomas. Atelectatic change of the lung base. 2 mm nodule of the right upper lobe series 4, image 35. Coronary artery calcifications: Mild Limited upper abdomen: Unremarkable Other: None Impression: LungRADS 2 - Benign Appearance: Continue annual screening with low dose Chest CT in 12 months. ##L2# Category 1: Normal; continue annual screening Category 2: Benign appearance or behavior, continue annual screening Category 3: Probably benign, [address] recommended Category 4A: Suspicious, [address] recommended; may consider PET/CT Category 4B: Suspicious, Additional diagnostics and/or tissue sampling recommended Category 4X: Suspicious, Additional diagnostics and/or tissue sampling recommended Category 0: Recalls (incomplete screen due to Incomplete coverage, Noise, Respiratory motion, Expiration, Obscured by acute abnormality) This document has been electronically signed by: Altagracia Coker MD on 05/12/2024 13:10:30
== END 2024-05-11 15:12 | disposition home or self-care (01) ==
LOC: HO.CT 15:11
PROVIDERS: PCP Physician Assistant; Visit Provider Internal Medicine Pulmonary Disease
DX: Z12.2 Encounter for screening for malignant neoplasm of respiratory organs (principal); Z87.891 Personal history of nicotine dependence
CPT/HCPCS: 71271

== ENCOUNTER → 2024-05-11 15:13 | Outpatient (BNV) | payer MEDICARE, MEDICAID, SELFPAY | PROVIDERS: PCP Physician Assistant; Visit Provider Nuclear Medicine | DX: Z87.891 Personal history of nicotine dependence (principal) | CPT/HCPCS: 71271 ==

== ENCOUNTER 2024-06-08 07:22 | Outpatient (REF) | payer MEDICARE, MEDICAID, SELFPAY ==
[2024-06-08 09:05] LABS: Hematocrit 43.7 % (42.0-52.0); Hemoglobin 14.8 g/dl (14.0-18.0); Mean Corpuscular HGB Conc 33.9 g/dl (31.0-36.0); Mean Corpuscular Hemoglobin 29.7 pg (27.0-33.0); Mean Corpuscular Volume 87.6 fL (80.0-98.0); Mean Platelet Volume 9.6 fL (9.4-12.4); Platelet Count 302 X10*3/uL (160-400); Red Blood Count 4.99 X10*6/uL (4.60-5.80); Red Cell Distribution Width 13.2 % (11.0-16.0); White Blood Count 7.7 X10*3/uL (4.8-10.8)
[2024-06-08 09:44] LABS: Alanine Aminotransferase 30 U/L (0-40); Albumin Level 4.4 g/dL (3.5-5.0); Alkaline Phosphatase 115 U/L (39-117); Anion Gap 12 (12-20); Aspartate Amino Transferase 19 U/L (5-37); Bilirubin Total 0.3 mg/dL (0.0-1.0); Blood Urea Nitrogen 31 mg/dL (9-16); Calcium 9.4 mg/dL (8.4-10.2); Carbon Dioxide 26 mmol/L (22-29); Chloride 107 mmol/L (96-108); Cholesterol 244 mg/dL (<200); Estimated Glomerular Filt Rate > 60; Glucose Fasting 105 mg/dL (60-99); HDL Cholesterol 44 mg/dL (>40); LDL Cholesterol Calculated 171 mg/dL (<100); Potassium 4.2 mmol/L (3.3-5.1); Sodium 141 mmol/L (135-145); Total Protein 7.1 g/dL (6.5-8.0); Triglycerides 145 mg/dL (<150)
[2024-06-08 09:59] LABS: HIV AB/AG Nonreactive (Nonreactive); HIV Num 1 0.05 S/CO (0.00-0.99); Prostate Specific Antigen Scr 2.89 ng/mL (<0.05-4.0)
[2024-06-08 10:01] LABS: Syphilis Screen Nonreactive (Nonreactive)
== END 2024-06-08 07:23 | disposition home or self-care (01) ==
LOC: HO.LAB 07:22
PROVIDERS: PCP Physician Assistant; Visit Provider Physician Assistant
DX: Z13.89 Encounter for screening for other disorder (principal)
CPT/HCPCS: 36415; 80053; 80061; 84153; 85027; 86780; 87389

== ENCOUNTER 2024-06-08 07:43 | Day surgery (SDC) | payer MEDICARE, MEDICAID, SELFPAY ==
[2024-06-02 15:44] VITALS: BMI 31.0
[2024-06-03 11:55] VITALS: BMI 31.0
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
[2024-06-08 09:00] VITALS: BP 139/79; PULSE 72; RESP 20; TEMP 36.4; O2SAT 97; BMI 30.7
--- NOTE | 2024-06-08 09:32 | MHC.SHP ---
Pre-Procedural Eval Section A - 24 Hr Update-Section A only Date of Service: 06/08/24 The patient is an INPATIENT: No Changes since office visit: No Cold of Flu in the past 2 weeks, No New Medical Problems, No Changes in Medication and No Patient answered all questions The patient has been examined within 24 hours of the surgical procedure. The History & Physical has been completed within 30 days and I have reviewed it.: Yes Section B - Complete if H&P > 30 days Chief Complaint: Dysphagia, unspecified Allergies: Allergies Allergy/AdvReac Type Severity Reaction Status Date / Time pantoprazole Allergy Severe tongue Verified 06/08/24 09:02 swelling Penicillins [PENICILLINS] Allergy Severe HIVES Verified 06/08/24 09:02 fluoxetine [From PROZAC] AdvReac Severe PT Verified 06/08/24 09:02 REPORTED IT MADE ME SPEED UP atorvastatin AdvReac Intermediate myalgia Verified 06/08/24 09:02 Plan I have reviewed the history and physical and performed a pertinent physical examination on my patient. No changes have occurred unless specified. Time Spent With Patient Time: Total time managing care of this patient today ____ minutes.
[2024-06-08 10:00] VITALS: BP 130/85; PULSE 76; RESP 12; TEMP 36.7; O2SAT 98
--- NOTE | 2024-06-08 10:00 | P.BOP_ITS ---
Brief Operative Note Date of Service: 06/08/24 Pre-op diagnosis: dysphagia Post-op diagnosis: same Procedure: EGD Surgeon: Rafiq Grayson MD Was an Certified Industrial Hygienist used for this Procedure?: No Estimated blood loss (mL): 2 Pathology: other Condition: stable Disposition: PACU
[2024-06-08 10:13] VITALS: BP 140/78; PULSE 68; RESP 18; TEMP 36.2; O2SAT 95
--- NOTE | 2024-06-08 10:24 | OP_ITS ---
DATE OF SERVICE: 06/08/2024 SURGEON: Rafiq Grayson MD PREOPERATIVE DIAGNOSIS: POSTOPERATIVE DIAGNOSIS: PROCEDURE PERFORMED: ESTIMATED BLOOD LOSS: COMPLICATIONS: ANESTHESIA: Monitored anesthesia care. ASSISTANTS: SPECIMENS: PROCEDURES PERFORMED: Upper endoscopy with balloon dilation and biopsy. INDICATION: Dysphagia. DESCRIPTION OF PROCEDURE: A history and physical were performed. The risks and benefits of the procedure were explained to the patient. Informed consent was obtained. The patient was placed in the left lateral decubitus position. The Olympus video gastroscope was introduced into the esophagus, stomach, and duodenum. Examination was performed. The scope was removed. He tolerated the procedure well and was taken to recovery area in stable condition. FINDINGS: Esophagus: The esophagus showed a nonobstructive Schatzki ring at 41 cm from the incisors. The scope easily passed through this. This was balloon dilated with an 18 mm balloon passed through the scope and inflated to its recommended pressure for 60 seconds and removed. Next, biopsies were obtained from the EG junction, which was irregular. No esophagitis was identified. Stomach: The stomach showed no evidence of masses, ulcers, or polyps. There was a small sliding hiatal hernia. Antral biopsies were obtained. Duodenum: The bulb and 2nd portion were normal. IMPRESSION: Schatzki ring. RECOMMENDATION: Follow up the biopsy results. MD KAMERON Heaton/CAMERON / [id number]
== END 2024-06-08 10:48 | disposition home or self-care (01) ==
PROVIDERS: PCP Physician Assistant; Visit Provider Internal Medicine Gastroenterology
PROC: (CPT 43249; principal; 2024-06-08 10:10)
DX: R13.10 Dysphagia, unspecified (principal); K22.2 Esophageal obstruction; K22.70 Barrett's esophagus without dysplasia; K44.9 Diaphragmatic hernia without obstruction or gangrene; G47.33 Obstructive sleep apnea (adult) (pediatric); H91.90 Unspecified hearing loss, unspecified ear; F31.9 Bipolar disorder, unspecified; J44.9 Chronic obstructive pulmonary disease, unspecified; Z79.899 Other long term (current) drug therapy; F17.210 Nicotine dependence, cigarettes, uncomplicated; Z88.0 Allergy status to penicillin; F11.20 Opioid dependence, uncomplicated; Z98.890 Other specified postprocedural states
CPT/HCPCS: 43249; 43239; 36415; 80053; 80061; 84153; 85027; 86780; 87389; 88305; 88313; 88342; C1726; J2003; J2704

== ENCOUNTER 2024-06-29 12:50 | Outpatient (REF) | payer MEDICARE, MEDICAID, SELFPAY | END 2024-06-29 12:51 | disposition home or self-care (01) | LOC: HO.HAP 12:50 | PROVIDERS: Visit Provider Physician Assistant | DX: Z46.1 Encounter for fitting and adjustment of hearing aid (principal); H90.3 Sensorineural hearing loss, bilateral | CPT/HCPCS: V5266 ==

== ENCOUNTER 2024-06-29 13:00 | Outpatient (REF) | payer MEDICARE, MEDICAID, SELFPAY ==
[2024-06-29 14:34] LABS: Creatinine Urine 163.86 mg/dL; Microalbum/Creatinine Ratio Ur 4.2 ug/mg cr (<30)
[2024-06-29 16:05] LABS: CT PCR NOT DETECTED (Not Detect.); NG PCR NOT DETECTED (Not Detect.)
== END 2024-06-29 13:01 | disposition home or self-care (01) ==
LOC: HO.LAB 13:00
PROVIDERS: PCP Physician Assistant; Visit Provider Physician Assistant
DX: R21 Rash and other nonspecific skin eruption (principal); Z20.2 Contact with and (suspected) exposure to infections with a predominantly sexual mode of transmission; I10 Essential (primary) hypertension
CPT/HCPCS: 82043; 82570; 87491; 87591

== ENCOUNTER 2024-07-26 10:51 | Outpatient (AMB) | payer MEDICARE, MEDICAID, SELFPAY ==
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
[2024-07-26 10:56] VITALS: BP 139/87; PULSE 95; RESP 20; TEMP 36.4; O2SAT 98
== END 2024-07-26 11:37 | disposition home or self-care (01) ==
LOC: HO.HMCH 10:52
PROVIDERS: PCP Physician Assistant
DX: J32.9 Chronic sinusitis, unspecified (principal); H65.91 Unspecified nonsuppurative otitis media, right ear

== ENCOUNTER → 2024-07-26 10:51 | Outpatient (BNVA) | payer MEDICARE, MEDICAID, SELFPAY | PROVIDERS: PCP Physician Assistant | DX: J32.9 Chronic sinusitis, unspecified (principal); H65.91 Unspecified nonsuppurative otitis media, right ear | CPT/HCPCS: 99212 ==

== ENCOUNTER 2024-09-10 09:00 | Outpatient (REF) | payer MEDICARE, MEDICAID, SELFPAY ==
--- NOTE | 2024-09-10 10:19 | MHC.AU.HA3 ---
Hearing Instrument Follow-Up- Binaural Date of Visit: 09/10/24 Right Ear: Farhan, Model, Color, Serial Number: [id number], chestector S#[id number] [facility] Assistant Repair Warranty: 01/01/2027 [facility] Assistant Loss and Damage Warranty: 01/01/2027 [facility] Service Plan: 01/13/2025 Battery Size: 13 Earmold/Dome/CShell/SlimTip:Microsonic skeleton molds Dispensed By: [facility] Date of Fittin01/14/2024 Left Ear: Farhan, Model, Color, Serial Number: [id number] [id number], chestector S#[id number] [facility] Assistant Repair Warranty: 01/01/2027 [facility] Assistant Loss and Damage Warranty: 01/01/2027 [facility] Service Plan: 01/13/2025 Battery Size: 13 Earmold/Dome/CShell/SlimTip: Microsonic skeleton molds Dispensed By: [facility] Date of Fittin01/14/2024 Follow-Up Summary: Wilver is here for maintenance. Reports right mold was uncomfortable so he cut some material off but the edges are a bit rough. Reports left needs tubing change and tone hook is spinning. Cleaned aids, cleaned earmolds, sanded right mold where Wilver had modified. Ran aids through dehumidifier. Re-tubed hearing aids, wax build up noted in old tubes. Replaced tone hooks. Listening check positive. Gave Wilver two spare tone hooks as requested. Wilver reports he has been hearing low sounds really loudly since having a sinus infection. Sounds keep him up at night, when his hearing aids are not in. He has been thinking about seeing ENT. Otoscopy clear Au. Recommended pursuing ENT consult. Recommendations: Recommendations: Hearing instrument maintenance in 6 months, or sooner if needed. Diagnosis Code(s): Primary Diagnosis: H90.3 Bilateral Sensorineural Hearing Loss Signature: Provider: Lynn Sewell, [facility]
== END 2024-09-10 09:01 | disposition home or self-care (01) ==
LOC: HO.HAP 09:00
PROVIDERS: Visit Provider Physician Assistant
DX: Z13.89 Encounter for screening for other disorder (principal)

== ENCOUNTER 2024-10-26 08:47 | Outpatient (REF) | payer MEDICARE, MEDICAID, SELFPAY ==
--- NOTE | ~2024-10-26 | XR_ITS ---
EXAMINATION: XR CERVICAL SPINE CLINICAL INFORMATION: M79.602 - Pain in left arm COMPARISON: March 29, 2014. TECHNIQUE: AP oblique, lateral, sunrise views. FINDINGS: Craniocervical junction is intact. Endplate sclerosis and decreased intervertebral disc height C5-6 and to a lesser extent C4-5. Posterior marginal osteophyte formation C3-4 C4-5 and C5-6 levels resulting in multilevel bilateral neuroforamina narrowing C3-4 C4-5 C5-6. No acute cortical disruption. No gross malalignment. No lytic or blastic lesions. XR/XR cervical spine 4V IMPRESSION: Multilevel cervical spondylosis resulting in bilateral neuroforamina narrowing from C3-4 to C5-6. Electronically signed by: Shay Smith MD 10/26/2024 09:35 AM EDT
== END 2024-10-26 08:48 | disposition home or self-care (01) ==
LOC: HO.HMGCX 08:47
PROVIDERS: Visit Provider Physician Assistant
DX: M79.602 Pain in left arm (principal); M25.512 Pain in left shoulder; M54.2 Cervicalgia
CPT/HCPCS: 72050; 99212

== ENCOUNTER 2024-10-26 08:47 | Outpatient (AMB) | payer MEDICARE, MEDICAID, SELFPAY ==
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
[2024-10-26 08:52] VITALS: BP 132/84; PULSE 91; TEMP 36.6; O2SAT 95; BMI 29.8
== END 2024-10-26 09:12 | disposition home or self-care (01) ==
PROVIDERS: Visit Provider Physician Assistant
DX: M79.602 Pain in left arm (principal)

== ENCOUNTER → 2024-10-26 09:15 | Outpatient (BNV) | payer MEDICARE, MEDICAID, SELFPAY | PROVIDERS: Visit Provider Radiology Diagnostic Radiology | DX: M47.812 Spondylosis without myelopathy or radiculopathy, cervical region (principal); M99.61 Osseous and subluxation stenosis of intervertebral foramina of cervical region | CPT/HCPCS: 72050 ==

== ENCOUNTER 2024-11-05 06:01 | Outpatient (REF) | payer MEDICARE, MEDICAID, SELFPAY ==
[2024-11-05 07:53] LABS: Hematocrit 43.1 % (42.0-52.0); Hemoglobin 14.3 g/dl (14.0-18.0); Mean Corpuscular HGB Conc 33.2 g/dl (31.0-36.0); Mean Corpuscular Hemoglobin 29.9 pg (27.0-33.0); Mean Corpuscular Volume 90.2 fL (80.0-98.0); NRBC Abs Auto 0.000 X10*3/uL (0.0-0.012); NRBC Pct Auto 0.0 /100WBC (0.0-0.2); Platelet Count 258 X10*3/uL (160-400); Red Blood Count 4.78 X10*6/uL (4.60-5.80); White Blood Count 8.8 X10*3/uL (4.8-10.8)
[2024-11-05 08:17] LABS: Alanine Aminotransferase 27 U/L (0-40); Albumin Level 4.4 g/dL (3.5-5.0); Alkaline Phosphatase 90 U/L (39-117); Anion Gap 10 (12-20); Aspartate Amino Transferase 22 U/L (5-37); Blood Urea Nitrogen 25 mg/dL (9-16); Calcium 9.0 mg/dL (8.4-10.2); Carbon Dioxide 27 mmol/L (22-29); Chloride 109 mmol/L (96-108); Cholesterol 272 mg/dL (<200); Estimated Glomerular Filt Rate > 60; HDL Cholesterol 41 mg/dL (>40); Potassium 4.3 mmol/L (3.3-5.1); Sodium 142 mmol/L (135-145); Total Protein 6.9 g/dL (6.5-8.0); Triglycerides 193 mg/dL (<150)
== END 2024-11-05 06:02 | disposition home or self-care (01) ==
LOC: HO.LAB 06:01
PROVIDERS: PCP Physician Assistant; Visit Provider Physician Assistant
DX: I10 Essential (primary) hypertension (principal); J41.0 Simple chronic bronchitis; E78.00 Pure hypercholesterolemia, unspecified
CPT/HCPCS: 36415; 80053; 80061; 85027

== ENCOUNTER 2024-11-11 08:12 | Outpatient (REF) | payer MEDICARE, MEDICAID, SELFPAY ==
--- NOTE | ~2024-11-11 | XR_ITS ---
EXAMINATION: XR THORACIC SPINE CLINICAL INFORMATION: M54.6 - Pain in thoracic spine COMPARISON: None available. TECHNIQUE: 3 views of the thoracic spine were obtained. FINDINGS: There is no significant scoliosis. There is a normal thoracic kyphosis. There is no subluxation. There is no fracture, compression deformity, or suspicious bone lesion evident. Normal facet alignment. No significant facet arthrosis. Mild diffuse disc degeneration is present with fused flowing disc osteophytes in the mid and inferior thoracic region. Findings raise the possibility of DISH. Imaged paravertebral soft tissues, mediastinal structures and lungs appear grossly normal. XR/XR thoracic spine 3V IMPRESSION: 1. No acute findings of the thoracic spine. 2. Fused flowing disc osteophytes of the mid and inferior thoracic spine with relative preservation of disc spaces, findings suggestive of DISH. Electronically signed by: Serafin Aceves MD 11/11/2024 09:40 AM EDT
== END 2024-11-11 08:13 | disposition home or self-care (01) ==
LOC: HO.XRAY 08:12
PROVIDERS: PCP Physician Assistant; Visit Provider Physician Assistant
DX: M54.6 Pain in thoracic spine (principal); E78.00 Pure hypercholesterolemia, unspecified; R10.11 Right upper quadrant pain; J41.0 Simple chronic bronchitis; L98.9 Disorder of the skin and subcutaneous tissue, unspecified; Z79.82 Long term (current) use of aspirin; Z82.49 Family history of ischemic heart disease and other diseases of the circulatory system; Z87.891 Personal history of nicotine dependence
CPT/HCPCS: 72072; 96127; 99212

== ENCOUNTER 2024-11-11 08:12 | Outpatient (AMB) | payer MEDICARE, MEDICAID, SELFPAY ==
[2024-11-11 08:16] VITALS: BP 138/92; PULSE 85; TEMP 36.1; O2SAT 97
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
== END 2024-11-11 08:59 | disposition home or self-care (01) ==
LOC: HO.HMCH 08:13
PROVIDERS: PCP Physician Assistant; Visit Provider Physician Assistant
DX: E78.00 Pure hypercholesterolemia, unspecified (principal); Z82.49 Family history of ischemic heart disease and other diseases of the circulatory system; R10.11 Right upper quadrant pain; J41.0 Simple chronic bronchitis; Z87.891 Personal history of nicotine dependence; L98.9 Disorder of the skin and subcutaneous tissue, unspecified; M54.6 Pain in thoracic spine

== ENCOUNTER → 2024-11-11 09:23 | Outpatient (BNV) | payer MEDICARE, MEDICAID, SELFPAY | PROVIDERS: PCP Physician Assistant; Visit Provider Radiology Diagnostic Radiology | DX: M25.78 Osteophyte, vertebrae (principal) | CPT/HCPCS: 72072 ==

== ENCOUNTER 2024-12-01 12:32 | Outpatient (AMB) | payer MEDICARE, MEDICAID, SELFPAY ==
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
[2024-12-01 12:39] VITALS: BP 154/90; PULSE 92; TEMP 36.1; O2SAT 97; BMI 29.6
== END 2024-12-01 13:15 | disposition home or self-care (01) ==
LOC: HO.HMCH 12:33
PROVIDERS: PCP Physician Assistant; Visit Provider Internal Medicine
DX: M54.6 Pain in thoracic spine (principal)

== ENCOUNTER → 2024-12-01 12:32 | Outpatient (BNVA) | payer MEDICARE, MEDICAID, SELFPAY | PROVIDERS: PCP Physician Assistant; Visit Provider Internal Medicine | DX: M54.6 Pain in thoracic spine (principal); G89.29 Other chronic pain; M43.20 Fusion of spine, site unspecified | CPT/HCPCS: 96127; 99212 ==